=== PATIENT | female | born 1970 | race Caucasian/White ===

== ENCOUNTER 2020-02-03 01:00 | Outpatient (CLI) | payer OTHER, SELFPAY ==
[2020-02-03 16:32] LABS: SARS-CoV-2 RNA PCR Negative
== END 2020-02-03 01:01 | disposition home or self-care (01) ==
LOC: ANHCOVIDDT 01:00
PROVIDERS: PCP Family Medicine; Visit Provider Internal Medicine Gastroenterology
DX: Z01.812 Encounter for preprocedural laboratory examination (principal); Z20.828 Contact with and (suspected) exposure to other viral communicable diseases
CPT/HCPCS: 87635; C9803; U0003

== ENCOUNTER 2020-02-05 00:41 | Day surgery (SDC) | payer OTHER, SELFPAY ==
[2020-01-22 14:57] VITALS: BMI 42.1
[2020-02-05 09:55] VITALS: BP 132/81; PULSE 65; RESP 18; TEMP 36.5; O2SAT 98; BMI 41.8
[2020-02-05] MEDS: LACTATED RINGERS 1,000 ML 150 ML IV CONT (10:15)
--- NOTE | 2020-02-05 10:19 | WPDANESEPPF ---
Anes - Initial Pre Proc Eval Procedure: Operation Date: 02/05/20 10:30 Proposed Procedures p Screening Colonoscopy - Zachery Dumont MD Date/Time: 02/05/20 10:19 Surgeon: Zachery Dumont MD Pre Op Diagnosis: Neoplasm Screening Patient Data Age: 49 Gender: F Height: 5 ft 4 in Weight: 110.7 kg Last Vital Signs Temp 36.5 C 02/05/20 09:55 Pulse 65 02/05/20 09:55 Resp 65 H 02/05/20 09:55 BP 132/81 02/05/20 09:55 Pulse Ox 98 02/05/20 09:55 Allergies Allergy/AdvReac Type Severity Reaction Status Date / Time clotrimazole Allergy Unknown Unknown Verified 02/05/20 09:54 doxycycline Allergy Unknown Hives Verified 02/05/20 09:54 Home Medications Medication Instructions Recorded Confirmed Type aspirin 81 mg tablet,delayed 81 mg PO DAILY 06/04/19 01/22/20 History release cetirizine 10 mg tablet 10 mg PO DAILY 06/04/19 01/22/20 History cholecalciferol (vitamin D3) 125 125 mcg PO DAILY 06/04/19 01/22/20 History mcg (5,000 unit) capsule coenzyme Q10 200 mg capsule 200 mg PO DAILY 06/04/19 01/22/20 History levothyroxine 100 mcg tablet 100 mcg PO DAILY 06/04/19 01/22/20 History triamterene 37.5 1 cap PO DAILY 06/04/19 01/22/20 History mg-hydrochlorothiazide 25 mg capsule peg 3350-electrolytes 236 240 ml PO Q10M #4000 ml 01/21/20 02/05/20 Rx gram-22.74 gram-6.74 gram-5.86 gram solution Bifidobacterium infantis [Align] 4 mg PO DAILY 01/22/20 01/22/20 History duloxetine 20 mg capsule,delayed 20 mg PO BID #60 cap 01/29/20 02/05/20 Rx release Patient hx anesthesia problems: none Family hx anesthesia problems: none PMFSH Past Medical History Medical History Chronic fatigue, unspecified MANCIA (dyspnea on exertion) Essential hypertension Family history of diabetes mellitus Obstructive sleep apnea Surgical History Surgical History History of cholecystectomy History of hysterectomy Family History Family History Mother Family history of thyroid disease Grandparent Family history of thyroid disease Family history of cardiovascular disease Family history of lung cancer Father Diabetes mellitus Family history of cardiovascular disease Family history of congestive heart failure Social History Social History Smoking status: Never smoker Smoking end date: 05/29/96 Alcohol intake: current Anes - Eval Final PreProcedure Day of Procedure 02/05/20 10:19 Patient weight: morbidly obese Heart: regular rate and rhythm Lungs: clear to auscultation Airway: Mallampati scale class II Neurological: alert and oriented Last oral intake: >/= 8 hours ASA classification: III Emergent: no Anesthetic plan: proceed Anesthesia type and monitoring: general GIVS and standard monitoring Informed Consent: The patient's anesthetic plan and its attendant risks and benefits were discussed with the patient/family/POA. Questions were solicited and answers provided to the satisfaction of the patient/family/POA.
--- NOTE | 2020-02-05 10:44 | PM.HPGS ---
History of Present Illness History of Present Illness Consent: Risks, benefits, and alternatives have been discussed and questions answered. Patient agrees to proceed with procedure. Chief complaint: Neoplasm Screening Narrative: Imani Ortiz is a 49 year old female here for first screening colonoscopy Review of Systems Constitutional: Constitutional: Denies headache(s) and Denies weakness Eyes: Eyes: Denies blurry vision ENT: Reports Normal hearing present, Denies headache(s) and Denies neck pain Cardiovascular: Cardiovascular: Denies chest pain and Denies dyspnea Respiratory: Respiratory: Denies dyspnea Gastrointestinal: Gastrointestinal: Reports no additional gastrointestinal complaints Genitourinary: Genitourinary: Denies dysuria Musculoskeletal: Musculoskeletal: Denies neck pain Integumentary/Breasts: Skin/Breast: Denies dry skin Neurologic: Reports Normal hearing present, Denies headache(s) and Denies weakness Psychiatric: Psychiatric: Denies anxiety Endocrine: Endocrine: Denies change in body appearance Hematologic/Lymphatic: Hematologic/Lymphatic: Denies easy bleeding Allergic/Immunologic: Allergic/Immunologic: Denies urticaria PMFSH Past Medical History Medical History Chronic fatigue, unspecified MANCIA (dyspnea on exertion) Essential hypertension Family history of diabetes mellitus Obstructive sleep apnea Surgical History Surgical History History of cholecystectomy History of hysterectomy Family History Family History Mother Family history of thyroid disease Grandparent Family history of thyroid disease Family history of cardiovascular disease Family history of lung cancer Father Diabetes mellitus Family history of cardiovascular disease Family history of congestive heart failure Social History Social History Smoking status: Never smoker Smoking end date: 05/29/96 Alcohol intake: current Meds Home Medications and Allergies Home Medications Medication Instructions Recorded Confirmed Type aspirin 81 mg tablet,delayed 81 mg PO DAILY 06/04/19 01/22/20 History release cetirizine 10 mg tablet 10 mg PO DAILY 06/04/19 01/22/20 History cholecalciferol (vitamin D3) 125 125 mcg PO DAILY 06/04/19 01/22/20 History mcg (5,000 unit) capsule coenzyme Q10 200 mg capsule 200 mg PO DAILY 06/04/19 01/22/20 History levothyroxine 100 mcg tablet 100 mcg PO DAILY 06/04/19 01/22/20 History triamterene 37.5 1 cap PO DAILY 06/04/19 01/22/20 History mg-hydrochlorothiazide 25 mg capsule peg 3350-electrolytes 236 240 ml PO Q10M #4000 ml 01/21/20 02/05/20 Rx gram-22.74 gram-6.74 gram-5.86 gram solution Bifidobacterium infantis [Align] 4 mg PO DAILY 01/22/20 01/22/20 History duloxetine 20 mg capsule,delayed 20 mg PO BID #60 cap 01/29/20 02/05/20 Rx release Allergies Allergy/AdvReac Type Severity Reaction Status Date / Time clotrimazole Allergy Unknown Unknown Verified 02/05/20 09:54 doxycycline Allergy Unknown Hives Verified 02/05/20 09:54 Vital Signs Vital Signs - 24 hr 02/05/20 09:55 Temperature 97.7 F Pulse Rate 65 Respiratory Rate 65 H Blood Pressure 132/81 Pulse Oximetry 98 Exam Const: General: comfortable and no acute distress HENMT: General nose exam: Normal nares present Eyes: General: appearance normal, both eyes and all related structures Neck: Neck: no JVD Resp: Auscultation: clear to auscultation bilaterally Cardio: Rate: regular rate Rhythm: regular rhythm GI: Inspection: non-distended GI Palp: Yes Soft to palpation Skin: General skin exam: normal color Neuro: General: gait normal Speech: normal speech Extrem: General: normal to inspection Psych: Mental Status: mental status grossly
[2020-02-05 11:07] VITALS: BP 136/71; PULSE 64; RESP 21; O2SAT 100
[2020-02-05 11:17] VITALS: BP 120/83; PULSE 66; RESP 18; O2SAT 100
[2020-02-05 11:27] VITALS: BP 130/98; PULSE 61; RESP 21; O2SAT 100
== END 2020-02-05 11:38 | disposition home or self-care (01) ==
PROVIDERS: PCP Family Medicine; Visit Provider Internal Medicine Gastroenterology
PROC: 0DJD8ZZ Inspection of Lower Intestinal Tract, Via Natural or Artificial Opening Endoscopic (ICD-10-PCS; CPT 45378; principal; 2020-02-05 10:30)
DX: Z12.11 Encounter for screening for malignant neoplasm of colon (principal); K57.30 Diverticulosis of large intestine without perforation or abscess without bleeding; K64.8 Other hemorrhoids; I10 Essential (primary) hypertension; G47.33 Obstructive sleep apnea (adult) (pediatric); R53.82 Chronic fatigue, unspecified; Z79.82 Long term (current) use of aspirin
CPT/HCPCS: 45378; 87635; C9803; J2704; J7120; U0003

== ENCOUNTER 2020-05-13 06:54 | Outpatient (NON) | payer OTHER, SELFPAY ==
[2020-05-13 12:34] LABS: Influenza Control Positive
[2020-05-13 18:05] LABS: SARS-CoV-2 RNA PCR Negative
== END 2020-05-13 06:55 ==
LOC: ANHCOVIDDT 07:11
PROVIDERS: PCP Family Medicine; Visit Provider Family Medicine
DX: Z20.828 Contact with and (suspected) exposure to other viral communicable diseases (principal); J02.9 Acute pharyngitis, unspecified; R10.9 Unspecified abdominal pain
CPT/HCPCS: 87635; 87804; C9803; U0003

== ENCOUNTER 2020-06-02 08:06 | Outpatient (CLI) | payer OTHER, SELFPAY ==
--- NOTE | ~2020-06-02 | MM_ITS ---
EXAMINATION: MM screening [facility] BI w julio cesar HISTORY: Screening mammogram TECHNIQUE: Craniocaudal and mediolateral oblique 3-D tomosynthesis images were obtained and synthetic 2-D images were generated. CAD analysis was submitted and interpreted. COMPARISON: 05/09/2019, 04/25/2018, 06/14/2016 BREAST PARENCHYMAL COMPOSITION: There are scattered areas of fibroglandular density. FINDINGS: There is no evidence of suspicious mass, calcification, or architectural distortion to sugg est malignancy in either breast. There has been no suspicious interval change. IMPRESSION: 1. No mammographic evidence of malignancy. 2. Recommend routine screening mammography in one year. BI-RADS Category 1: Negative Reviewed, dictated and finalized at location A. [employer]
== END 2020-06-02 08:07 | disposition home or self-care (01) ==
PROVIDERS: PCP Family Medicine; Visit Provider Obstetrics & Gynecology
DX: Z12.31 Encounter for screening mammogram for malignant neoplasm of breast (principal)
CPT/HCPCS: 77063; 77067

== ENCOUNTER → 2021-02-10 08:11 | Outpatient (CLI) | payer OTHER, SELFPAY ==
--- NOTE | ~2021-02-10 | XR_ITS ---
XR lumbar spine 2-3V DATE: 02/10/2021 08:53 INDICATION: Low back pain TECHNIQUE: AP, lateral, coned lateral lumbosacral views COMPARISON: None FINDINGS: There is mild dextro scoliosis of the thoracolumbar spine. There is osteopenia. There is mild to moderate degenerative disc disease of the lower thoracic and lumbar spine. There is associated minimal retrolisthesis at L4-5. No fracture or bone destruction is evident. Included lower thoracic and lumbar pedicles are intact. The sacroiliac joints are normal. Status post cholecystectomy. IMPRESSION: [id number] degenerative disc disease Reviewed, dictated and finalized at location A. IMPRESSION: [id number] degenerative disc disease
== END ==
PROVIDERS: PCP Family Medicine; Visit Provider Family Medicine
DX: M51.36 Other intervertebral disc degeneration, lumbar region (principal)
CPT/HCPCS: 72100

== ENCOUNTER 2021-09-22 07:47 | Outpatient (CLI) | payer OTHER, SELFPAY ==
--- NOTE | ~2021-09-22 | MM_ITS ---
EXAMINATION: MM screening [facility] w julio cesar HISTORY: Screening TECHNIQUE: Craniocaudal and mediolateral oblique 3-D tomosynthesis images were obtained and synthetic 2-D images were generated. CAD analysis was submitted and interpreted. COMPARISON: Comparison to multiple prior studies sequentially, with oldest reviewed study dated 02/19. BREAST PARENCHYMAL COMPOSITION: There are scattered areas of fibroglandular density. FINDINGS: Stable bilateral breast asymmetries. There is no evidence of suspicious mass, calcification , or architectural distortion to suggest malignancy in either breast. There has been no suspicious in terval change. IMPRESSION: 1. No mammographic evidence of malignancy. 2. Recommend routine screening mammography in one year. BI-RADS Category 1: Negative Reviewed, dictated and finalized at location A.
== END 2021-09-22 07:48 | disposition home or self-care (01) ==
LOC: ANHIMG 07:48
PROVIDERS: PCP Family Medicine; Visit Provider Family Medicine
DX: Z12.31 Encounter for screening mammogram for malignant neoplasm of breast (principal)
CPT/HCPCS: 77063; 77067

== ENCOUNTER 2021-12-26 05:54 | Emergency (ER) | payer OTHER, SELFPAY ==
--- NOTE | ~2021-12-26 | CT_ITS ---
EXAMINATION: CT abdomen pelvis wo con DATE: 12/26/2021 07:39 INDICATION: Lower abdominal pain TECHNIQUE: Computed tomography (CT) of the abdomen and pelvis was performed with 100 mL Omnipaque-300 intravenous contrast. Automated exposure control and iterative reconstruction technique were employe d. The dose-length product was 1407.87 mGy-cm. COMPARISON: None FINDINGS: Mild discoid atelectasis in the left lower lobe. Calcified left lower lobe nodule along with calcifie d left hilar lymph nodes and a few splenic calcific lesions consistent with old granulomatous disease . Heart size is normal. No pericardial or pleural effusion. Diffuse hepatic steatosis. Cholecystectom y clips the gallbladder fossa. Pancreas, left kidney and bilateral adrenal glands are normal. There i s horizontal orientation of the right kidney which is otherwise normal. No urolithiasis or hydronephrosis. There is mild scattered diverticulosis with descending and sigmoid colon predominance but without adjacent inflammatory change to suggest diverticulitis. Small bowel a nd appendix are normal. Diffuse mild wall thickening in the bladder to at least in part to partially decompressed state. There appears be a couple tiny foci of gas within the bladder. The uterus is not identified and has likely been surgically resected. No free intraperitoneal gas or fluid. No patholog ically enlarged abdominal or pelvic lymphadenopathy. Mild to moderate lumbar and lower thoracic spond ylosis. IMPRESSION: 1. Mild wall thickening of the bladder to at least in part to decompressed state but with a couple sm all foci of internal gas which raises the possibility of cystitis or recent Nunez catheterization or other instrumentation. Correlate with urinalysis and clinical history. 2. Mild diverticulosis. 3. Diffuse hepatic steatosis. Reviewed, dictated and finalized at location A. IMPRESSION: 1. Mild wall thickening of the bladder to at least in part to decompressed stat e but with a couple small foci of internal gas which raises the possibility of cystitis or recent Nunez catheterization or other instrumentation. Correlate wi urinalysis and clinical history. 2. Mild diverticulosis. 3. Diffuse hepatic steatosis.
[2021-12-26 06:06] VITALS: BP 139/66; PULSE 98; RESP 14; TEMP 36.3; O2SAT 98
[2021-12-26 06:26] LABS: Add Urine Microscopic? YES; Blood Urine 3+ (Negative); Color Urine Red (Yellow); Glucose Urine UA Negative (Negative); Nitrate Urine Negative (Negative); pH Urine 8.5 (5.0-9.0)
[2021-12-26 06:39] LABS: Appearance Urine Cloudy (Clear)
[2021-12-26 06:41] LABS: Bilirubin Urine 3+ (Negative)
[2021-12-26 06:42] LABS: Ketones Urine 2+ mg/dL (Negative); Leukocyte Esterase Ur 3+ LEU/UL (Negative); Protein Urine 3+ mg/dL (Negative)
[2021-12-26 06:46] LABS: RBC Urine >75 /hpf (0-2); WBC Clumps Urine Present /HPF; WBC Urine >75 /hpf
--- NOTE | 2021-12-26 07:29 | ED.FEMALEGU ---
HPI - Female Genitourinary General Chief complaint: Urogenital-Female Stated complaint: hematuria, suprapubic pain Time Seen by Provider: 12/26/21 07:02 Source: RN notes reviewed History of Present Illness HPI Narrative: Patient presents emergency room from home for hematuria. Patient states symptoms began approximately 4:30 AM. States that at that time she developed dysuria and hematuria as well as lower abdominal pain. The pain is described as sharp and stabbing in nature. States the pain does not radiate. States that she feels that she needs to use the restroom frequently as well she denies any fevers or chills chest pain shortness of breath nausea vomiting or any other symptoms Related Data Home Medications Medication Instructions Recorded Confirmed aspirin 81 mg tablet,delayed 81 mg PO DAILY 06/04/19 12/07/21 release (Adult Low Dose Aspirin) cetirizine 10 mg tablet (Zyrtec) 10 mg PO DAILY 06/04/19 12/07/21 cholecalciferol (vitamin D3) 125 125 mcg PO DAILY 06/04/19 12/07/21 mcg (5,000 unit) capsule coenzyme Q10 200 mg capsule (Co 200 mg PO DAILY 06/04/19 12/07/21 Q-10) levothyroxine 100 mcg tablet 100 mcg PO DAILY 06/04/19 12/07/21 (Synthroid) Bifidobacterium infantis 4 mg 4 mg PO DAILY 01/22/20 12/07/21 capsule (Align) Allergies Allergy/AdvReac Type Severity Reaction Status Date / Time levofloxacin Allergy Severe Joint Pain Verified 12/07/21 11:33 clotrimazole Allergy Unknown Unknown Verified 12/07/21 11:33 doxycycline Allergy Unknown Hives Verified 12/07/21 11:33 Review of Systems Review of Systems: Gen.: Denies fevers or chills ENT: Denies congestion Respiratory: Denies shortness of breath or cough CV: Denies chest pain or palpitations GI: Reports lower abdominal pain denies nausea vomiting or diarrhea see HPI Musculoskeletal: Denies back pain or muscle pain Neuro: Denies numbness, tingling, weakness or focal weakness Skin: Denies rash Except as documented, all other systems reviewed and negative PMFSH Past Medical History Medical History Chronic fatigue, unspecified Colon cancer screening MANCAI (dyspnea on exertion) Essential hypertension Family history of diabetes mellitus Obstructive sleep apnea Surgical History Surgical History History of cholecystectomy History of hysterectomy Family History Family History Mother Family history of thyroid disease Grandparent Family history of thyroid disease Family history of cardiovascular disease Family history of lung cancer Father Diabetes mellitus Family history of cardiovascular disease Family history of congestive heart failure Social History Social History Smoking status: Never smoker Second hand tobacco smoke exposure: No Smoking end date: 05/29/96 Alcohol intake: current Drinks per week: 10 Alcohol use details: 01/05 beers a week Substance use: never Substance use type: does not use Gender identity (if verbalized by the patient): Female Spiritual care concerns: No Agree to blood products: Yes Exam Narrative: APPEARANCE: No acute distress, nontoxic, resting in bed HEENT: Normocephalic, atraumatic, OMM RESPIRATORY: No respiratory distress, clear to auscultation bilaterally with no rhonchi wheezing or rales CARDIOVASCULAR: RRR s murmur ABDOMINAL: Soft nondistended tender palpation in right lower quadrant left lower quadrant tenderness right upper quadrant left lower quadrant rebound or guarding MUSCULOSKELETAl: Moves all extremities. No clubbing, cyanosis or edema. NEURO: Awake and alert. Following commands, speech normal, no focal deficits SKIN:: Warm, dry. Normal Color PSYCHIATRIC: Normal affect/mood Course Course Emergency Course: Discussed with patient results of w
[2021-12-26] MEDS: PHENAZOPYRIDINE HCL 100 MG TABLET 200 MG PO (07:59)
[2021-12-26] MEDS: IBUPROFEN 600 MG TABLET PO (08:29)
[2021-12-26 08:53] VITALS: BP 142/99; PULSE 94; RESP 16; O2SAT 95
== END 2021-12-26 08:55 | disposition home or self-care (01) ==
PROVIDERS: Emergency Medicine; Emergency Provider Emergency Medicine; PCP Family Medicine
DX: N39.0 Urinary tract infection, site not specified (principal); R53.82 Chronic fatigue, unspecified; I10 Essential (primary) hypertension; G47.33 Obstructive sleep apnea (adult) (pediatric); Z90.710 Acquired absence of both cervix and uterus; Z79.82 Long term (current) use of aspirin
CPT/HCPCS: 74176; 81001; 87077; 87086; 87186; 99284; A9270

== ENCOUNTER → 2022-12-07 10:01 | Outpatient (CLI) | payer OTHER, SELFPAY ==
--- NOTE | ~2022-12-07 | US_ITS ---
EXAMINATION: US venous doppler [facility] DATE: 12/07/2022 10:17 INDICATION: Left lower limb pain TECHNIQUE: Grayscale ultrasound images without and with compression and Doppler ultrasound images of the left lower extremity veins were obtained. COMPARISON: None. FINDINGS: The visualized portions of left common femoral vein, profunda (deep) femoral vein, femoral vein, popl iteal vein, peroneal veins, posterior tibial veins, gastrocnemius vein and greater saphenous vein out flow are patent. IMPRESSION: 1. No deep venous thrombosis in the left lower limb. Reviewed, dictated and finalized at location A.
== END ==
PROVIDERS: PCP Family Medicine; Visit Provider Nurse Practitioner Family
DX: M79.662 Pain in left lower leg (principal)
CPT/HCPCS: 93971

== ENCOUNTER 2023-02-01 08:29 | Outpatient (CLI) | payer OTHER, SELFPAY ==
--- NOTE | ~2023-02-01 | MM_ITS ---
EXAMINATION: MM screening [facility] w julio cesar HISTORY: Screening mammogram TECHNIQUE: Craniocaudal and mediolateral oblique 3-D tomosynthesis images were obtained and synthetic 2-D images were generated. CAD analysis was submitted and interpreted. COMPARISON: September 22, 2021, June 02, 2020, May 09, 2019 bilateral screening mammogram examinat ions BREAST PARENCHYMAL COMPOSITION: There are scattered areas of fibroglandular density. FINDINGS: There is a biopsy marker on the right; history of prior benign right breast biopsy. There i s no evidence of suspicious mass, calcification, or architectural distortion to suggest malignancy in either breast. There has been no suspicious interval change. IMPRESSION: 1. No mammographic evidence of malignancy. 2. Recommend routine screening mammography in one year. BI-RADS Category 1: Negative Reviewed, dictated and finalized at location A.
== END 2023-02-01 08:30 | disposition home or self-care (01) ==
LOC: ANHIMG 08:31
PROVIDERS: PCP Family Medicine; Visit Provider Family Medicine
DX: Z12.31 Encounter for screening mammogram for malignant neoplasm of breast (principal)
CPT/HCPCS: 77063; 77067

== ENCOUNTER → 2023-03-23 15:33 | Outpatient (CLI) | payer OTHER, SELFPAY ==
--- NOTE | ~2023-03-23 | XR_ITS ---
XR knee RT min 4V DATE: 03/23/2023 15:44 INDICATION: Lateral right knee pain for one week TECHNIQUE: [place] and standing AP, PA and lateral views COMPARISON: None FINDINGS: Patellar enthesopathy at quadriceps tendon insertion site. No fracture or dislocation or joint effusion. No periosteal reaction or bone destruction. Very slight periarticular spurring of the medial and lateral tibial plateau. Joint spaces appear well preserved. No radiopaque intra-articular loose body or chondrocalcinosis. IMPRESSION: Slight osteoarthritis Reviewed, dictated and finalized at location A. IMPRESSION: Slight osteoarthritis
== END ==
PROVIDERS: PCP Family Medicine; Visit Provider Family Medicine
DX: M17.11 Unilateral primary osteoarthritis, right knee (principal)
CPT/HCPCS: 73564

== ENCOUNTER 2023-07-07 09:33 | Outpatient (CLI) | payer OTHER, SELFPAY ==
--- NOTE | ~2023-07-07 | CT_ITS ---
EXAMINATION: CT abdomen pelvis w con INDICATION: Left lower quadrant and left flank pain TECHNIQUE: Computed tomographic images of the abdomen and pelvis were obtained after the administrati on of 100 cc of Omnipaque 350 intravenous contrast. The dose-length product (DLP) was 1379.32 mGy-cm. Automated exposure control and iterative reconstruction technique were employed. COMPARISON: 12/26/2021 FINDINGS: The lung bases are clear. The heart size is normal. The liver is diffusely low in attenuati on when compared with the spleen, consistent with hepatic steatosis. Punctate calcifications in an ot herwise normal spleen likely represent healed granulomatous disease. Changes of cholecystectomy are n oted. The pancreas and adrenal glands are normal. The kidneys are unremarkable. No pathologically enl arged abdominal or pelvic lymph nodes are identified. No free intraperitoneal gas or evidence of peyman l obstruction. Colonic diverticulosis is present without evidence of diverticulitis. The appendix is normal. There is moderate lumbar spondylosis. IMPRESSION: 1. No CT correlate for the patient's symptoms. 2. Diverticulosis without evidence of diverticulitis. 3. Diffuse hepatic steatosis. Reviewed, dictated and finalized at location B. [employer]
== END 2023-07-07 09:34 | disposition home or self-care (01) ==
PROVIDERS: PCP Family Medicine; Visit Provider Nurse Practitioner
DX: R10.32 Left lower quadrant pain (principal); R19.4 Change in bowel habit; K57.30 Diverticulosis of large intestine without perforation or abscess without bleeding; K76.0 Fatty (change of) liver, not elsewhere classified
CPT/HCPCS: 74177; Q9967

== ENCOUNTER 2023-07-26 01:53 | Day surgery (SDC) | payer OTHER, SELFPAY ==
[2023-07-11 15:22] VITALS: BMI 44.6
--- NOTE | 2023-07-24 11:52 | PC.NURSE ---
Patient called regarding upcoming procedure. Reviewed preop instructions, appointment times, and procedure prep.
[2023-07-26 13:12] VITALS: BP 135/95; PULSE 71; RESP 18; TEMP 36; O2SAT 98; BMI 43.3
--- NOTE | 2023-07-26 13:30 | WPDANESEPPF ---
Anes - Initial Pre Proc Eval Procedure: Operation Date: 07/26/23 14:30 Proposed Procedures p Esophagogastroduodenoscopy & Colonoscopy - Zachery Dumont MD Date/Time: 07/26/23 13:30 Surgeon: Zachery Dumont MD Pre Op Diagnosis: GERD,Eructation,Nausea,change in bowel habits Patient Data Age: 52 Gender: F Height: 1.63 m Weight: 114.5 kg Last Vital Signs Temp 36.0 C L 07/26/23 13:12 Pulse 71 07/26/23 13:12 Resp 18 07/26/23 13:12 BP 135/95 H 07/26/23 13:12 Pulse Ox 98 07/26/23 13:12 O2 Del Method Room Air 07/26/23 13:12 Allergies Allergy/AdvReac Type Severity Reaction Status Date / Time levofloxacin Allergy Severe Joint Pain Verified 07/26/23 13:20 clotrimazole Allergy Unknown Unknown Verified 07/26/23 13:20 doxycycline Allergy Unknown Hives Verified 07/26/23 13:20 Home Medications Medication Instructions Recorded Confirmed Type aspirin 81 mg tablet,delayed 81 mg PO DAILY 06/04/19 07/26/23 History release (Adult Low Dose Aspirin) cetirizine 10 mg tablet (Zyrtec) 10 mg PO DAILY 06/04/19 07/26/23 History cholecalciferol (vitamin D3) 125 125 mcg PO DAILY 06/04/19 07/26/23 History mcg (5,000 unit) capsule coenzyme Q10 200 mg capsule (Co 200 mg PO DAILY 06/04/19 07/26/23 History Q-10) albuterol sulfate 90 mcg/actuation 2 puff inhalation Q4H PRN 12/09/21 07/26/23 Rx aerosol inhaler (Ventolin HFA) shortness of breath or wheezing #6.7 grams duloxetine 60 mg capsule,delayed 60 mg PO DAILY #90 caps 03/14/23 07/26/23 Rx release lorazepam 0.5 mg tablet (Ativan) 0.5 mg PO BID PRN anxiety #14 tabs 04/04/23 07/26/23 Rx levothyroxine 100 mcg tablet 100 mcg PO DAILY #90 tabs 04/05/23 07/26/23 Rx (Synthroid) triamterene 37.5 See Rx Instructions .Route 05/09/23 07/26/23 Rx mg-hydrochlorothiazide 25 mg tablet .COMPLEX #90 tabs omeprazole 20 mg capsule,delayed 20 mg PO DAILY 07/11/23 07/26/23 History release Patient hx anesthesia problems: none Family hx anesthesia problems: none Results Review: All pre-operative results and documents have been reviewed as part of the pre-operative evaluation. PMFSH Past Medical History Medical History Abdominal pain Abnormal urinalysis B12 deficiency Belching symptom Change in bowel habit Chronic fatigue, unspecified Chronic nausea Colon cancer screening Diverticulosis MANCIA (dyspnea on exertion) Dysuria Epigastric burning sensation Essential hypertension Family history of diabetes mellitus Fatigue Fibromyalgia GERD (gastroesophageal reflux disease) Hyperglycemia Hyperlipemia Hypothyroid Insomnia LLQ abdominal pain Lumbar back pain Obesity Obstructive sleep apnea Pain in left lower leg Palpitations Panic attack Perimenopausal Prediabetes Right knee DJD Vitamin D deficiency Surgical History Surgical History H/O thumb surgery History of cholecystectomy History of hysterectomy (08/11/11) Robotic-assisted total hysterectomy Family History Family History Mother Family history of thyroid disease Grandparent Family history of thyroid disease Family history of cardiovascular disease Family history of lung cancer Father Diabetes mellitus Family history of cardiovascular disease Family history of congestive heart failure Unknown Asthma Hypertension Heart disease Arthritis Hyperlipidemia Social History Social History Smoking status: Never smoker Second hand tobacco smoke exposure: No Smoking end date: 05/29/96 Alcohol intake: former Drinks per week: 6 Substance use: never Substance use type: does not use Do You Feel Safe in your Home?: Yes Lack of Transportation: No Lack of Food: Never True Current Housing: I Have Housing Concerned About Fu
[2023-07-26] MEDS: LACTATED RINGERS 1,000 ML 150 ML IV CONT (13:43)
--- NOTE | 2023-07-26 14:13 | WPDHPUPDATE1 ---
History and Physical Update Update Date/Time: 07/26/23 14:13 History and Physical has been reviewed, including an updated exam of the patient. There are NO changes in the patient's condition. Risks, benefits, and alternatives have been discussed and questions answered. Patient agrees to proceed with procedure.
--- NOTE | 2023-07-26 14:31 | SUR.OPER ---
EGD end: 1428 COLONOSCOPY START: 1433
[2023-07-26 14:46] VITALS: BP 128/74; PULSE 77; RESP 23; O2SAT 99
[2023-07-26 14:56] VITALS: BP 127/76; PULSE 76; RESP 19; O2SAT 100
[2023-07-26 15:06] VITALS: BP 141/71; PULSE 75; RESP 24; O2SAT 99
== END 2023-07-26 15:25 | disposition home or self-care (01) ==
PROVIDERS: PCP Family Medicine; Visit Provider Internal Medicine Gastroenterology
PROC: 0DJ08ZZ Inspection of Upper Intestinal Tract, Via Natural or Artificial Opening Endoscopic (ICD-10-PCS; CPT 43235; principal; 2023-07-26 14:30)
DX: K52.9 Noninfective gastroenteritis and colitis, unspecified (principal); K57.30 Diverticulosis of large intestine without perforation or abscess without bleeding; K64.8 Other hemorrhoids; I10 Essential (primary) hypertension; E03.9 Hypothyroidism, unspecified; K21.9 Gastro-esophageal reflux disease without esophagitis; G47.33 Obstructive sleep apnea (adult) (pediatric); E55.9 Vitamin D deficiency, unspecified; R73.03 Prediabetes; Z87.891 Personal history of nicotine dependence; E66.01 Morbid (severe) obesity due to excess calories; Z68.41 Body mass index [BMI] 40.0-44.9, adult; Z79.82 Long term (current) use of aspirin; Z79.51 Long term (current) use of inhaled steroids
CPT/HCPCS: 45380; 43239; 88305; J2704; J7120

== ENCOUNTER 2023-10-02 10:43 | Outpatient (CLI) | payer OTHER, SELFPAY | END 2023-10-02 10:44 | LOC: GOSHIMG 10:45 | PROVIDERS: PCP Family Medicine; Visit Provider Nurse Practitioner | DX: M25.562 Pain in left knee (principal) | CPT/HCPCS: 73562 ==

== ENCOUNTER 2023-10-04 09:23 | Outpatient (CLI) | payer OTHER, SELFPAY ==
--- NOTE | ~2023-10-04 | MR_ITS ---
EXAMINATION: MR knee LT wo con DATE: 10/04/2023 09:59 INDICATION: Left knee pain. TECHNIQUE: Magnetic resonance imaging (MRI) of the left knee was performed without intravenous contra st. Sequences included axial PD-weighted FS FSE, coronal PD-weighted FSE and PD-weighted FS FSE, sagi ttal PD-weighted FSE, and sagittal T2-weighted FS FSE. COMPARISON: Left knee radiographs 10/02/2023 FINDINGS: Medial compartment: There is a radial tear of posterior horn of medial meniscus. There is shallow partial-thickness carti diamond loss of tibial condyle. There is mild subchondral edema-like marrow signal intensity involving t he anterior articular surface. There is partial-thickness cartilage loss of femoral condyle, deep at the central articular surface where there is mild subchondral edema-like marrow signal intensity. Ost eophytes are noted. Lateral compartment: Lateral meniscus is normal. There is cartilage surface irregularity of femoral condyle and tibial con dyle. There are tiny osteophytes. Patellofemoral compartment: There is full-thickness cartilage loss of patellar medial facet and median ridge with mild subchondra l edema-like marrow signal intensity. There is partial-thickness cartilage loss of the patellar later al facet. There is full-thickness cartilage loss of central trochlea. Ligaments and tendons: The anterior and posterior cruciate ligaments are normal. There are changes of prior sprains of media l collateral ligament and fibular collateral ligament characterized by thickening and increased signa l intensity proximally. There is moderate patellar tendinopathy. Fluid: There is a moderate-sized knee joint effusion. There is a small Nazario's cyst. There is mild prepatell ar and superficial infrapatellar bursitis. IMPRESSION: 1. Severe chondrosis of patellofemoral compartment, moderate chondrosis of the medial compartment, an d mild chondrosis of lateral compartment. 2. Tear of medial meniscus. 3. Moderate-sized knee joint effusion. 4. Small Nazario's cyst. Reviewed, dictated and finalized at location A. IMPRESSION: 1. Severe chondrosis of patellofemoral compartment, moderate chondrosis of the medial compartment, and mild chondrosis of lateral compartment. 2. Tear of medial meniscus. 3. Moderate-sized knee joint effusion. 4. Small Nazario's cyst.
== END 2023-10-04 09:24 ==
PROVIDERS: PCP Orthopaedic Surgery; Visit Provider Nurse Practitioner
DX: M25.462 Effusion, left knee (principal); M71.22 Synovial cyst of popliteal space [Baker], left knee; S83.242D Other tear of medial meniscus, current injury, left knee, subsequent encounter; X58.XXXD Exposure to other specified factors, subsequent encounter
CPT/HCPCS: 73721

== ENCOUNTER 2023-11-03 09:20 | Outpatient (CLI) | payer OTHER, SELFPAY ==
--- NOTE | 2023-11-03 09:32 | ECG_ITS ---
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 Measurements Intervals [place] Rate: 59 P: 21 AK: 186 QRS: 58 QRSD: 87 T: 30 QT: 389 QTc: 388 Interpretive Statements SINUS BRADYCARDIA LOW QRS VOLTAGE POOR R-WAVE PROGRESSION ABNORMAL ECG No previous ECG available for comparison Electronically Signed On 11-04-2023 07:43:10 CDT by Russel Santana M.D.
[2023-11-03 11:05] LABS: Anion Gap 5 mmol/L (4-12); Blood Urea Nitrogen 17 mg/dL (7-17); Calcium 9.7 mg/dL (8.4-10.2); Carbon Dioxide 30 mmol/L (22-30); Chloride 103 mmol/L (98-107); Estimated Glomerular Filt Rate > 60; Glucose 96 mg/dL (65-110); Potassium 3.8 mmol/L (3.4-5.0); Sodium 138 mmol/L (137-145)
== END 2023-11-03 09:21 | disposition home or self-care (01) ==
LOC: ANHSURGERY 09:23
PROVIDERS: Anesthesiology; PCP Family Medicine; Visit Provider Orthopaedic Surgery
DX: I10 Essential (primary) hypertension (principal); Z79.899 Other long term (current) drug therapy; Z01.818 Encounter for other preprocedural examination
CPT/HCPCS: 36415; 80048; 93005

== ENCOUNTER 2023-11-09 04:13 | Day surgery (SDC) | payer OTHER, SELFPAY ==
[2023-11-01 13:03] VITALS: BMI 42.1
--- NOTE | 2023-11-01 13:10 | PC.NURSE ---
Report to the Outpatient Waiting Room, entrance under the green pavilion located off [facility], at time _0830_ on date _[id number]_. Planned Procedure Time: _1030_. Time changes happen often and if your time is changed the preop area will call you the afternoon before. - You and your visitor will be asked to self-screen and do not enter if you have any COVID symptoms. - A mask is optional within the hospital at this time. Patients may have clear liquids (water, carbonated beverages, clear teas, apple juice) until 3 hours prior to surgery with a maximum of 20 ounces. - No food from midnight until time of surgery Take the following medications with a SIP of water the morning of surgery: __Duloxetine and Levothyroxine. Lorazepam if needed. DO NOT STOP ANY OF YOUR OTHER PRESCRIPTION MEDICATIONS PRIOR TO SURGERY ?EXCEPT THE FOLLOWING Medications to discontinue per physician ___Vitamin D3, QqN54 Date to take last tlib__[id number] Please no make-up, nail ghanaian, hairspray, perfume, deodorant, or body powder the day of surgery. No jewelry (including any body piercings) or valuables the day of surgery, leave them at home. Please take a shower or bath the night before, or the morning of, surgery with an antibacterial soap. Wear comfortable, loose fitting clothing. - Jewelry must be removed prior to entering the operating room. Rings and piercings that are not removed may be cut off. - The hospital will not accept responsibility for valuables. - Please leave all valuables, including medications, at home the day of surgery. If you are going home after surgery, a licensed hazmat tanker driver must drive you home. - NO public transportation without another adult if you receive anesthesia. - We recommend that an adult stay with you for 24 hours following discharge. - We also recommend that you do not drive, make important decision, drink alcoholic beverages, or take any drugs that were not prescribed by your health care provider for at least 24 hours after your discharge time. Follow any additional instructions given to you from your surgeon. If you or anyone in your household have experienced Covid symptoms in the past week, please notify your surgeon or the nurse liaison at the phone number below for possible testing. Telephone instructions given to _Ann__and asked if any additional questions and then verbalized understanding. Patient advised to call surgeon office or pre surgery nurse liaison [phone] if any additional questions.
[2023-11-09] VITALS (7 sets, daily range): BP systolic 137–166; BP diastolic 84–107; PULSE 75–90; RESP 14–22; TEMP 36.4–36.8; O2SAT 94–100
--- NOTE | 2023-11-09 07:17 | WPDHPUPDATE1 ---
History and Physical Update Update Date/Time: 11/09/23 07:17 History and Physical has been reviewed, including an updated exam of the patient. There are NO changes in the patient's condition. Risks, benefits, and alternatives have been discussed and questions answered. Patient agrees to proceed with procedure.
--- NOTE | 2023-11-09 09:20 | WPDANESEPPF ---
Anes - Initial Pre Proc Eval Procedure: Operation Date: 11/09/23 10:30 Proposed Procedures p Left Knee Arthroscopy, Debride Meniscus Synovectomy, Chrondroplasty, Proceed As Indicated - Pavan Mckay MD Date/Time: 11/09/23 09:20 Surgeon: Pavan Mckay MD Pre Op Diagnosis: Lt Knee Pain, Medial Meniscus tear Patient Data Age: 53 Gender: F Height: 1.63 m Weight: 111.4 kg Allergies Allergy/AdvReac Type Severity Reaction Status Date / Time levofloxacin Allergy Severe Joint Pain Verified 11/01/23 13:00 clotrimazole Allergy Unknown Unknown Verified 11/01/23 13:00 doxycycline Allergy Unknown Hives Verified 11/01/23 13:00 Home Medications Medication Instructions Recorded Confirmed Type aspirin 81 mg tablet,delayed 81 mg PO DAILY 06/04/19 11/01/23 History release (Adult Low Dose Aspirin) cetirizine 10 mg tablet (Zyrtec) 10 mg PO DAILY 06/04/19 11/01/23 History cholecalciferol (vitamin D3) 125 125 mcg PO DAILY 06/04/19 11/01/23 History mcg (5,000 unit) capsule coenzyme Q10 200 mg capsule (Co 200 mg PO DAILY 06/04/19 11/01/23 History Q-10) albuterol sulfate 90 mcg/actuation 2 puff inhalation Q4H PRN 12/09/21 11/01/23 Rx aerosol inhaler (Ventolin HFA) shortness of breath or wheezing #6.7 grams triamterene 37.5 See Rx Instructions .Route 05/09/23 11/01/23 Rx mg-hydrochlorothiazide 25 mg tablet .COMPLEX #90 tabs lorazepam 0.5 mg tablet (Ativan) 0.5 mg PO BID PRN anxiety #30 tabs 08/24/23 11/01/23 Rx levothyroxine 100 mcg tablet See Rx Instructions .Route 09/27/23 11/01/23 Rx .COMPLEX #90 tabs duloxetine 20 mg capsule,delayed 20 mg PO BID #180 caps 10/18/23 11/01/23 Rx release omeprazole 20 mg capsule,delayed 20 mg PO DAILY #90 caps 10/31/23 11/01/23 Rx release Patient hx anesthesia problems: none Family hx anesthesia problems: none Results Review: All pre-operative results and documents have been reviewed as part of the pre-operative evaluation. [facility] Past Medical History Medical History Abdominal pain Abnormal urinalysis Acute medial meniscus tear of left knee B12 deficiency Belching symptom Change in bowel habit Chondromalacia, left knee Chronic fatigue, unspecified Chronic nausea Colitis Colon cancer screening Diverticulosis MANCIA (dyspnea on exertion) Dysuria Epigastric burning sensation Essential hypertension Family history of diabetes mellitus Fatigue Fibromyalgia GERD (gastroesophageal reflux disease) Hyperglycemia Hyperlipemia Hypothyroid Insomnia LLQ abdominal pain Lumbar back pain Obesity Obstructive sleep apnea Pain in left lower leg Palpitations Panic attack Perimenopausal Prediabetes Right knee DJD Vitamin D deficiency Surgical History Surgical History H/O thumb surgery History of cholecystectomy History of hysterectomy (08/11/11) Robotic-assisted total hysterectomy Family History Family History Mother Family history of thyroid disease Grandparent Family history of thyroid disease Family history of cardiovascular disease Family history of lung cancer Father Diabetes mellitus Family history of cardiovascular disease Family history of congestive heart failure Unknown Asthma Hypertension Heart disease Arthritis Hyperlipidemia Social History Social History Smoking status: Never smoker Second hand tobacco smoke exposure: No Smoking end date: 05/29/96 Alcohol intake: current Drinks per week: 4 Substance use: never Substance use type: does not use Do You Feel Safe in your Home?: Yes Lack of Transportation: No Lack of Food: Never True Current Housing: I Have Housing Concerned About Future Housing: No Difficulty Paying Gas/Electric Bills: No Difficulty Paying fo
[2023-11-09] MEDS: LACTATED RINGERS 1,000 ML 30 ML IV CONT ×2 (09:45→12:15)
[2023-11-09] MEDS: KETOROLAC 15 MG/ML VIAL (*BKC) IV PUSH (09:45)
[2023-11-09] MEDS: ACETAMINOPHEN 500 MG TABLET 1000 MG PO (09:45)
[2023-11-09] MEDS: ceFAZolin 2 GM/D5W 50 ML 2 GM/50 ML BAG IVPB (11:13)
[2023-11-09] MEDS: BUPIVACAINE/EPINEPHRINE 0.5% 10 ML VIAL INFILTRATE (11:34)
[2023-11-09] MEDS: BUPivacaine HCL 0.25% PF 30 ML VIAL 10 ML INFILTRATE (11:35)
--- NOTE | 2023-11-09 12:24 | P.OP_ITS ---
Procedure Note - Detailed Date of Procedure 11/09/23 Pre-op Diagnosis Lt Knee Pain, Medial Meniscus tear Post-op Diagnosis Same Procedure Performed left knee arthroscopy, partial medial meniscectomy Surgeon Pavan Mckay MD Manufacturing Analyst surgical scrub Anesthesia General Indications 53-year-old woman with left knee injury medial-sided pain. MRI shows medial meniscus tear. Presents for operative treatment. Findings Left knee posterior horn medial meniscus tear, complex. Lateral meniscus and compartment intact. Grade 3 chondromalacia patellofemoral articulation. Grade 3 chondromalacia medial femoral condyle. ACL and PCL intact. Description of Procedure Informed consent given by patient. Operative extremity marked in preoperative holding area. Patient received intravenous antibiotics. Patient brought to operating room and underwent general anesthetic by anesthesia team. Positioned supine on operating room table. Left leg placed into a posterior thigh leg floyd. Foot of the table dropped to 90? and right leg padded out of the field. Time-out performed confirming patient, site of surgery and plan. Left knee prepped and draped in usual sterile surgical fashion using ChloraPrep skin solution. Standard arthroscopic portals made by using a 11 blade knife for the anterior lateral portal 1st. Capsule penetrated bluntly. Camera and inflow started. The below operative findings noted. Intra-articular visualization used to position the anterior medial portal using 22 gauge spinal needle. A 11 blade knife used for the skin and blunt penetration of the capsule. 4.7 millimeter arthroscopic shaver introduced and partial medial meniscectomy of the loose and torn portion performed. Edge of meniscus completed with arthroscopic Wand. Arthroscopic Wand used to perform chondroplasty of the patellofemoral articulation and the medial femoral condyle. Shaver reintroduced and a synovectomy performed of the anterior fat pad and extensive synovium as well as medial and lateral plica. Bleeding points coagulated with Wand. Knee inspected, no loose pieces noted. 1 liter of irrigant infused and suction out. Arthroscopic cannulas removed. Skin closed with 4 nylon interrupted suture. Local anesthetic with 0.25% Marcaine. Sterile dressing applied. Patient awoken from anesthesia, extubated and taken to recovery room in stable condition. All sponge needle and instrument counts correct at the end of the case. Estimated Blood Loss 10 Tourniquet Time Total Tourniquet Time: 0 Drains No Packing No Pathology None sent Complications None Condition Stable Disposition PACU [facility] Billing Surgery - Charge Forward: Surgery Billing ([id number])
[2023-11-09] MEDS: oxyCODONE HCL (*CRX) 5 MG TAB IR PO (13:25)
== END 2023-11-09 14:13 | disposition home or self-care (01) ==
PROVIDERS: PCP Family Medicine; Visit Provider Orthopaedic Surgery
PROC: (CPT 29870; principal; 2023-11-09 10:30)
DX: S83.232A Complex tear of medial meniscus, current injury, left knee, initial encounter (principal); M22.42 Chondromalacia patellae, left knee; T14.90XA Injury, unspecified, initial encounter; I10 Essential (primary) hypertension; E53.8 Deficiency of other specified B group vitamins; K21.9 Gastro-esophageal reflux disease without esophagitis; E78.5 Hyperlipidemia, unspecified; E03.9 Hypothyroidism, unspecified; E55.9 Vitamin D deficiency, unspecified; G47.33 Obstructive sleep apnea (adult) (pediatric); E66.9 Obesity, unspecified; Z68.41 Body mass index [BMI] 40.0-44.9, adult
CPT/HCPCS: 29881; 36415; 80048; 93005; A9270; J0690; J1100; J1885; J2250; J2405; J2704; J3010; J7120

== ENCOUNTER 2024-02-26 07:20 | Outpatient (CLI) | payer OTHER, SELFPAY ==
--- NOTE | ~2024-02-26 | MM_ITS ---
EXAMINATION: MM screening triston BI w julio cesar HISTORY: Screening TECHNIQUE: Craniocaudal and mediolateral oblique 3-D tomosynthesis images were obtained and synthetic 2-D images were generated. CAD analysis was submitted and interpreted. COMPARISON: Comparison to multiple prior studies sequentially, with oldest reviewed study dated 06/14. BREAST PARENCHYMAL COMPOSITION: Not dense: There are scattered areas of fibroglandular density. FINDINGS: There is no evidence of suspicious mass, calcification, or architectural distortion to sugg est malignancy in either breast. There has been no suspicious interval change. IMPRESSION: 1. No mammographic evidence of malignancy. 2. Recommend routine screening mammography in one year. BI-RADS Category 1: Negative Reviewed, dictated and finalized at location B.
== END 2024-02-26 07:21 | disposition home or self-care (01) ==
LOC: ANHIMG 07:24
PROVIDERS: PCP Family Medicine; Visit Provider Family Medicine
DX: Z12.31 Encounter for screening mammogram for malignant neoplasm of breast (principal)
CPT/HCPCS: 77063; 77067

== ENCOUNTER 2024-11-07 04:18 | Day surgery (SDC) | payer OTHER, SELFPAY ==
[2024-11-05 13:24] VITALS: BMI 42.9
--- OUTSIDE RECORDS SUMMARY | 2024-11-07 04:38 | XMS_ITS | Clinical Summary ---
Author Organization [facility] Address [address] [place] [address] Care Team Providers Care Registered Public Surveyor Name Role Phone Rhianna Fryefer Primary Care Provider Source Comments [facility],non-owned Affiliates and Associated Physician Practices is amultiple site organization consisting of ambulatory clinics and hospital sitesin [place], [place], [place] and [place]. This disclosure is being madepursuant to the Care Everywhere program and may not contain all information available regarding this patient. Last updated 18.[facility] Allergies Active Allergy Reactions Criticality Noted Date Comments Doxycycline Rash Medium 04/30/2019 Medications * Be aware that medications may not be up to date on this document. Alwaysverify current medications with the patient. triamterene-hyd roCHLOROthiazid e (MAXZIDE-25) 37.5-25 MG tablet 8 Active levothyroxine (SYNTHROID) 100 MCG tablet Take 100 mcg by mouth daily before breakfast Active DULoxetine (CYMBALTA) 20 MG capsule once daily 1 Active Active Problems Problem Noted Date Diagnosed Date Neoplasm of uncertain behavior of skin 1 Other seborrheic dermatitis 03/23/2021 History of actinic keratoses 03/23/2021 Inflamed seborrheic keratosis 04/30/2019 Other seborrheic keratosis 04/30/2019 Allergic rhinitis 01/02/2018 Fatigue 01/02/2018 Hypertension 01/02/2018 Low back pain 01/02/2018 Vitamin D deficiency 01/02/2018 Actinic keratoses 06/27/2017 Melanocytic nevi of trunk 06/27/2017 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 Vestibular migraine 01/01/2015 Hypothyroidism 07/24/2013 Goiter 07/23/2012 Silvia's thyroiditis 07/23/2012 Essential hypertension, benign 01/17/2012 Thyroid nodule 01/17/2012 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 Immunizations Immunization Administration Dates Next Due INFLUENZA VACCINE 03/08/2021,02/26/2019 Family History Medical History Relation Name Comments Arthritis - Osteo Brother Diabetes - Type 2 Brother Arthritis - Osteo Father CAD (Coronary Artery Disease) Father Diabetes - Type 2 Father Hypertension Father Arthritis - Osteo Mother Thyroid Disease Mother Relation Name Status Comments Brother Father Mother Social History Tobacco Use Types Packs/Day Years Used Date Smoking Tobacco: Never Smokeless Tobacco: Never Alcohol Use Standard Drinks/Week Comments Yes 3 (1 standard drink = 0.6 oz pur e alcohol) Comments No Sex and Gender Information Value Date Recorded Sex Assigned at Not on file Legal Sex Female 12:22 PM LOCATION WORKER Gender Identity Not on file Sexual Orientation Not on file Last Filed Vital Signs Vital Sign Reading Time Taken Comments Blood Pressure 182/120 04/20/2021 7:25 AM LOCATION WORKER Pulse 69 04/20/2021 7:25 AM LOCATION WORKER Temperature 36.6 C (97.8 F) 01/02/2018 2:54 PM CDT Respiratory Rate 20 12/07/2015 3:02 PM CDT Oxygen Saturation 97% 01/02/2018 2:54 PM CDT Inhaled Oxygen Concentration - - Weight 108.9 kg (240 lb) 04/20/2021 7:25 AM LOCATION WORKER Height 162.6 cm (5' 4) 04/20/2021 7:25 AM LOCATION WORKER Body Mass Index 41.2 04/20/2021 7:25 AM LOCATION WORKER Plan of Treatment Health Maintenance Due Date Last Done Comments COLOGUARD (AGES 45-75) - COL ON CA SCREENING 1970 COLON MONITORING 1970 COLONOSCOPY - COLON CA SCREENING 1969 CT COLONOGRAPHY - COLON CA SCREENING 1970 Colorectal Cancer Screening 1970 FIT - COLON CA SCREENING 1970 FLEX SIG - COLON CA SCREENING 1970 LIPID TESTING 1970 MAMMOGRAM 1970 HIV SCREENING 1984 HEPATITIS C SCREENING 10/16/1987 DTAP/TDAP/TD VACCINES (1 - Tdap) 1988 HEPATITIS B VACCINE (1 of 3 - 19+ 3-dose series) 1988 PNEUMOCOCCAL VACCINE 50+ (1 of 1 - PCV) 10/21/2019 ZOSTER VACCINE (1 of 2) 10/21/2019 SCREENING FOR DIABETES 04/20/2021 08/18/2017 COVID-19 VACCINE (1 - 2023-2 5 season) 2024 DEPRESSION SCREENING 05/29/2024 INFLUENZA VACCINE (Season Ended) 2025 03/08/2021, 02/26/2019 HIB VACCINE Aged Out No longer eligi ble based on patient's age to complete this topic HPV VACCINE Aged Out No longer eligi ble based on patient's age to complete this topic MENINGOCOCCAL (Group B) VACCINE SHARED DECISION-MAKING Aged Out No longer eligible based on patient's age to complete this topic MENINGOCOCCAL GROUPS A/C/Y/W VACCINE Aged Out No longer eligible b ased on patient's age to complete this topic Procedures Procedure Name Priority Date/Time Associated Diagnosis Comments BASIC METABOLIC PANEL (CALCIUM TOTAL) Routine 08/18/2017 8:08 AM CDT from Last 3 Months or Most Recently Relevant to Health Maintenance Results * BASIC METABOLIC PANEL (CALCIUM TOTAL) (08/18/2017 8:08 AM CDT) Glucose 99 65 - 99 mg/dL [facility] ([facility]) BUN 14 6 - 24 mg/dL [facility] ([facility]) Creatinine 0.88 0.57 - 1.00 mg/dL [facility] ([facility]) eGFR non- 78 >59 mL/min/1.7 3 [facility] ([facility]) eGFR 90 >59 mL/min/1.7 3 [facility] ([facility]) BUN/Creatinine Ratio 16 9 - 23 [facility]) Sodium 141 134 - 144 mmol/L [facility] ([facility]) Potassium 4.2 3.5 - 5.2 mmol/L [facility]) Chloride 96 96 - 106 mmol/L [facility]) CO2 27 18 - 29 mmol/L [facility] ([facility]) Calcium 10.2 8.7 - 10.2 mg/dL [facility] ([facility]) Blood specimen (specimen) BLOOD SPECIMEN / Unknown 08/18/2017 8:08 AM CDT 08/18/2017 Narrative [facility] ([facility]) - 08/19/2017 7:36 AM CDT Performed at: - [facility] [address] [place], [place] [id number] Child Care Team Lead: Gume Grace PhD, Phone: [phone] us Colby Bailey MD LAB - CHEMISTRY ORDERABLES Corry be Result [facility] ([facility]) [address] [place] [address], [facility] from Last 3 Months or Most Recently Relevant to Health Maintenance Insurance CARE CARE [employer] SELF PAY NO INSURANCE Member Subscriber Plan / Payer (Ef fective for All Dates) Name:Marion Espinal Member ID:Not on file Relation to Subscriber:Not on file Name:MARION ESPINAL Subscriber ID:Not on file Address: [address] [place] [address] Payer ID:Not on file Group ID:Not on file Type:Self Pay Address: [place], [place] [employer] SELF PAY NO INSURANCE Member Subscriber Plan / Payer (Ef fective for All Dates) Name:Marion Espinal Member ID:Not on file Relation to Subscriber:Not on file Name:MARION ESPINAL Subscriber ID:Not on file Address: [address] [place] [address] Payer ID:Not on file Group ID:Not on file Type:Self Pay Address: [place], [place] [employer] SELF PAY NO INSURANCE Member Subscriber Plan / Payer (Ef fective for All Dates) Name:Marion Espinal Member ID:Not on file Relation to Subscriber:Not on file Name:MARION ESPINAL Subscriber ID:Not on file Address: [address] [place] [phone] Payer ID:Not on file Group ID:Not on file Type:Self Pay Address: [place], [place] Care Teams Registered Public Surveyor Relationship Specialty Start Date End Date Ciera Frye DO [address] [place] [phone] PCP - General 01/02/18
--- OUTSIDE RECORDS SUMMARY | 2024-11-07 04:38 | XMS_ITS | Data Portability ---
Author Organization [facility], [facility] Address [address] [place] [address] Assessment No assessment recorded. Plan of Treatment Reminders Order Date Submit Date Provider Last Modified By Organization Details Last Modified Time Details Appointments None recorded. Lab CMP, serum or plasma 2015 016 DBA_PATCH_2 [id number] Not available 6 04:20:37 vitamin D3, 25-hydrox y, serum 2015 016 DBA_PATCH_2 [id number] Not available 6 04:20:38 T3, free, serum or plasma 2015 016 DBA_PATCH_2 [id number] Not available 6 04:20:39 TSH + free T4, serum 2015 016 DBA_PATCH_2 [id number] Not available 6 04:20:35 immunoglo bulins iga+igg+i gm, quantitat laura, serum 2015 016 DBA_PATCH_2 [id number] Not available 6 04:20:04 CBC w/ diff 2015 016 DBA_PATCH_2 [id number] Not available 6 04:20:06 T3, free, serum or plasma 2015 016 DBA_PATCH_2 [id number] Not available 6 04:20:06 TSH, serum or plasma 2015 016 DBA_PATCH_2 [id number] Not available 6 04:20:02 T3, reverse, serum 2015 016 DBA_PATCH_2 [id number] Not available 6 04:20:07 T4, free, serum 2015 016 DBA_PATCH_2 [id number] Not available 6 04:20:06 vitamin B12 + folate, serum or blood 2015 016 DBA_PATCH_2 [id number] Not available 6 04:19:57 vitamin D3, 25-hydrox y, serum 2015 016 DBA_PATCH_2 [id number] Not available 6 04:20:01 CMP, serum or plasma 2015 016 DBA_PATCH_2 [id number] Not available 6 04:20:02 CBC 2015 016 DBA_PATCH_2 [id number] Not available 6 04:20:04 judit-b arr virus (ebv) IgG + IgM panel, serum 2015 016 DBA_PATCH_2 [id number] Not available 6 04:20:07 Referral physical therapist referral - back muscle tension and pain 2014 015 [email or web address] Not available 5 10:35:11 Procedures None recorded. Surgeries None recorded. Imaging XR, sinuses 2015 016 DBA_PATCH_2 [id number] [facility], [address], [place], [address], 6 04:20:02 x-ray, chest 2015 DBA_PATCH_2 [id number] Not available 6 04:20:01 Medication Orders Advair Diskus 250 mcg-50 mcg/dose powder for inhalatio n 2015 DBA_PATCH_2 [id number] [facility]58845, [address], [place], [id number], 6 04:20:07 Biaxin 500 mg tablet 2015 016 DBA_PATCH_2 [id number] [facility] #83656, [address], [place], [id number], 6 04:20:01 ProAir HFA 90 mcg/actua tion aerosol inhaler 2015 016 DBA_PATCH_2 [id number] [facility] #98307, [address] [place], [place], [id number], 6 04:20:04 Silica (Silicea) 2014 015 cwartis [facility], [address] [place], [place], [id number], 6 13:09:38 Arnica [place] 2014 015 [email or web address] [facility] #81953, [address] [place], [place], [id number], 6 14:28:40 Lidoderm 5 % topical patch 2014 015 INTERFACE [facility] #46056, [address] [place], [place], [id number], 5 18:36:58 [facility] roid 113.75 mg tablet 2014 015 INTERFACE [facility], [address] [place] [address], [id number], 5 18:36:55 Patient TargetsNo targets recorded. Patient Instructions Encounter Date Encounter Id Patient Instructions Last Modified By Organization Details Last Modified Time 12/03/2014 [id number] allergies: care instructions [email or web address] Not available 12/04/2014 09:02:50 managing your allergies: care instructions [email or web address] Not available 12/04/2014 09:02:50 back care and preventing injuries: care instructions jblechle Not available 12/04/2014 09:02:50 getting back to normal after low back pain: care instructions jblechle Not available 12/04/2014 09:02:50 learning about relief for back pain jblechle Not available 12/04/2014 09:02:50 For back pain support: curcumin 2000 mg daily (Organic Moira or at office) Medications reviewed, side effects discussed. Call or return to clinic if questions or concerns. Return to clinic if symptoms worsen or persist. Not available 12/03/2014 18:36:51 10/29/2015 [id number] Referral to Michelle Chowdary for thyroid nodules [email or web address] Not available 10/29/2015 14:38:35 11/19/2015 [id number] controlling your asthma: care instructions [email or web address] Not available 11/20/2015 08:26:54 learning about asthma jblechle Not available 11/20/2015 08:26:54 cough: care instructions jblechle Not available 11/20/2015 08:26:55 12/24/2015 [id number] Con't the same Anti inflammatory diet off Gluten dairy sugar cwessling Not available 12/24/2015 13:25:19 03/31/2016 [id number] managing your allergies: care instructions smimms Not available 03/31/2016 14:46:50 minimize starches cwessling Not available 03/31/2016 14:23:56 Reason for Referral back muscle tension and pain Referring Physician: Dorothy Guillory, Family Medicine, Encounter Date: 12/03/2014 Results Created Date Observation Date Name Description Value Unit Range Abnormal Flag Note LastModifiedBy Organization Detail LastModifiedTime 11/07/19 15 11/07/2014 T4, free, serum T4,free(dire ct) 1.16 NG/dL 0.82-1 .77 Not Available [facility] ([facility]) [address] [place], [address], 11/07/2014 06:41:18 11/07/19 15 11/07/2014 TSH, serum or plasm a TSH 0.068 uIU/m L 0.450- 4.500 low Not Available [facility] ([facility]) [address] [place], [address], 11/07/2014 06:41:19 11/07/19 15 11/07/2014 T3, free, serum or plasm a triiodothyro nine,free,se rum 3.2 pg/mL 2.0-4. 4 Not Available [facility] ([facility]) [address] [place], [id number], 11/07/2014 06:41:19 10/29/19 16 10/30/2015 CBC WBC 6.5 x10e3 /uL 3.4-10 .8 Not Available [facility] ([facility]) [address] [place], [id number], 11/01/2015 16:35:30 10/29/19 16 10/30/2015 CBC RBC 5.21 x10e6 /uL 3.77-5 .28 Not Available [facility] ([facility]) [address] [place], [address], 11/01/2015 16:35:30 10/29/19 16 10/30/2015 CBC hemoglobin 14.1 g/dL 11.1-1 5.9 Not Available [facility] ([facility]) [address] [place], [address], 11/01/2015 16:35:30 10/29/19 16 10/30/2015 CBC hematocrit 45.0 % 34.0-4 6.6 Not Available [facility] ([facility]) [address] [place], [address], 11/01/2015 16:35:30 10/29/19 16 10/30/2015 CBC MCV 86 fL 79-97 Not Available [facility] ([facility]) [address] [place], [address], 11/01/2015 16:35:30 10/29/19 16 10/30/2015 CBC MCH 27.1 pg 26.6-3 3.0 Not Available [facility] ([facility]) [address] [facility], [place], [address], 11/01/2015 16:35:30 10/29/19 16 10/30/2015 CBC MCHC 31.3 g/dL 31.5-3 5.7 below low normal Not Available [facility] ([facility]) [address] [facility], [place], [id number], 11/01/2015 16:35:30 10/29/19 16 10/30/2015 CBC RDW 15.2 % 12.3-1 5.4 Not Available [facility] ([facility]) [address] [facility], [place], [id number], 11/01/2015 16:35:30 10/29/19 16 10/30/2015 CBC platelets 192 x10e3 /uL 150-37 9 Not Available [facility] ([facility]) [address] [facility], [place], [address], 11/01/2015 16:35:30 10/29/19 16 10/30/2015 CBC neutrophils 63 % Not Avai lable [facility] ([facility]) [address] [place], [id number], 11/01/2015 16:35:30 10/29/19 16 10/30/2015 CBC lymphs 21 % Not Available [facility] ([facility]) [address] [facility], [place], [address], 11/01/2015 16:35:30 10/29/19 16 10/30/2015 CBC monocytes 10 % Not Availa ble [facility] ([facility]) [address] [facility], [place], [id number], 11/01/2015 16:35:30 10/29/19 16 10/30/2015 CBC eos 5 % Not Available [facility] ([facility]) [address] [facility], [place], [id number], 11/01/2015 16:35:30 10/29/19 16 10/30/2015 CBC basos 1 % Not Available [facility] ([facility]) [address] [facility], [place], [address], 11/01/2015 16:35:30 10/29/19 16 10/30/2015 CBC immature cells BUSINESS SERVICES ADMINISTRATOR Not Available [facility] ([facility]) [address] [facility], [place], [address], 11/01/2015 16:35:30 10/29/19 16 10/30/2015 CBC neutrophils (absolute) 4.1 x10e3 /uL 1.4-7. 0 Not Available [facility] ([facility]) [address] [facility], [place], [address], 11/01/2015 16:35:30 10/29/19 16 10/30/2015 CBC lymphs (absolute) 1.4 x10e3 /uL 0.7-3. 1 Not Available [facility] ([facility]) [address] [facility], [place], [address], 11/01/2015 16:35:30 10/29/19 16 10/30/2015 CBC monocytes(ab solute) 0.7 x10e3 /uL 0.1-0. 9 Not Available [facility] ([facility]) [address] [facility], [place], [address], 11/01/2015 16:35:30 10/29/19 16 10/30/2015 CBC eos (absolute) 0.3 x10e3 /uL 0.0-0. 4 Not Available [facility] ([facility]) [address] [facility], [place], [address], 11/01/2015 16:35:30 10/29/19 16 10/30/2015 CBC baso (absolute) 0.0 x10e3 /uL 0.0-0. 2 Not Available [facility] ([facility]) [address] [facility], [place], [address], 11/01/2015 16:35:30 10/29/19 16 10/30/2015 CBC immature granulocytes 0 % Not Available [facility] ([facility]) [address] [place], [address], 11/01/2015 16:35:30 10/29/19 16 10/30/2015 CBC immature grans (abs) 0.0 x10e3 /uL 0.0-0. 1 Not Available [facility] ([facility]) [address] [place], [address], 11/01/2015 16:35:30 10/29/19 16 10/30/2015 CBC NRBC BUSINESS SERVICES ADMINISTRATOR Not Available [facility] ([facility]) [address] [place], [address], 11/01/2015 16:35:30 10/29/19 16 10/30/2015 CBC hematology comments: BUSINESS SERVICES ADMINISTRATOR Not Available [facility] ([facility]) [address] [place], [address], 11/01/2015 16:35:30 10/29/19 16 10/30/2015 CMP, serum or plasm a glucose, serum 80 mg/dL 65-99 Not Available [facility] ([facility]) [address] [place], [address], 11/01/2015 16:35:31 10/29/19 16 10/30/2015 CMP, serum or plasm a BUN 15 mg/dL 6-24 Not Available [facility] ([facility]) [address] [place], [address], 11/01/2015 16:35:31 10/29/19 16 10/30/2015 CMP, serum or plasm a creatinine, serum 0.83 mg/dL 0.57-1 .00 Not Available [facility] ([facility]) [address] [place], [address], 11/01/2015 16:35:31 10/29/19 16 10/30/2015 CMP, serum or plasm a eGFR if nonafricn AM 85 mL/mi n/1.7 3 >59 Not Available [facility] ([facility]) [address] [place], [id number], 11/01/2015 16:35:31 10/29/19 16 10/30/2015 CMP, serum or plasm a eGFR if africn AM 98 mL/mi n/1.7 3 >59 Not Available [facility] ([facility]) [address] [place], [id number], 11/01/2015 16:35:31 10/29/19 16 10/30/2015 CMP, serum or plasm a BUN/creatini ne ratio 18 9-23 Not Available [facility] ([facility]) [address] [place], [id number], 11/01/2015 16:35:31 10/29/19 16 10/30/2015 CMP, serum or plasm a sodium, serum 143 mmol/ L 134-14 4 Not Available [facility] ([facility]) [address] [place], [address], 11/01/2015 16:35:31 10/29/19 16 10/30/2015 CMP, serum or plasm a potassium, serum 4.2 mmol/ L 3.5-5. 2 Not Available [facility] ([facility]) [address] [place], [address], 11/01/2015 16:35:31 10/29/19 16 10/30/2015 CMP, serum or plasm a chloride, serum 99 mmol/ L 97-108 Not Available [facility] ([facility]) [address] [place], [address], 11/01/2015 16:35:31 10/29/19 16 10/30/2015 CMP, serum or plasm a carbon dioxide, total 25 mmol/ L 18-29 Not Available [facility] ([facility]) [address] [place], [address], 11/01/2015 16:35:31 10/29/19 16 10/30/2015 CMP, serum or plasm a calcium, serum 9.8 mg/dL 8.7-10 .2 Not Available [facility] ([facility]) [address] [place], [address], 11/01/2015 16:35:31 10/29/19 16 10/30/2015 CMP, serum or plasm a protein, total, serum 7.2 g/dL 6.0-8. 5 Not Available [facility] ([facility]) [address] [place], [address], 11/01/2015 16:35:31 10/29/19 16 10/30/2015 CMP, serum or plasm a albumin, serum 4.6 g/dL 3.5-5. 5 Not Available [facility] ([facility]) [address] [place], [address], 11/01/2015 16:35:31 10/29/19 16 10/30/2015 CMP, serum or plasm a globulin, total 2.6 g/dL 1.5-4. 5 Not Available [facility] ([facility]) [address] [place], [address], 11/01/2015 16:35:31 10/29/19 16 10/30/2015 CMP, serum or plasm a A/G ratio 1.8 1.1-2. 5 Not Available [facility] ([facility]) [address] [place], [address], 11/01/2015 16:35:31 10/29/19 16 10/30/2015 CMP, serum or plasm a bilirubin, total 0.5 mg/dL 0.0-1. 2 Not Available [facility] ([facility]) [address] [place] [address], [address], 11/01/2015 16:35:31 10/29/19 16 10/30/2015 CMP, serum or plasm a alkaline phosphatase, S 84 IU/L 39-117 Not Available [facility] ([facility]) [address] [facility], [place], [address], 11/01/2015 16:35:31 10/29/19 16 10/30/2015 CMP, serum or plasm a AST (SGOT) 30 IU/L 0-40 Not Available [facility] ([facility]) [address] [facility], [place], [address], 11/01/2015 16:35:31 10/29/19 16 10/30/2015 CMP, serum or plasm a ALT (SGPT) 41 IU/L 0-32 above high normal Not Available [facility] ([facility]) [address] [facility], [place], [address], 11/01/2015 16:35:31 10/29/19 16 10/29/2015 epste in-ba rr virus (ebv) Ab, serum interpretati on: COMMEN T EBV INTER PRETA TION CHART INTER PRETA TION EBV-I GM EA(D) -IGG VCA-I GG EBNA- IGG EBV SERON EGATI VE - - - - EARLY PHASE + - - - ACUTE PRIMA RY + +OR- + - INFEC TION CONVA LESCE NCE/P AST - +OR- + + INFEC TION REACT IVATE D +OR- + + + INFEC TION + ANTIB CARTER PRESE NT - ANTIB CARTER ABSEN T Not Available [facility] ([facility]) [address] [facility], [place], [address], 11/01/2015 16:35:31 10/29/19 16 10/30/2015 epste in-ba rr virus (ebv) Ab, serum ebv Ab vca, IgM <36.0 U/mL 0.0-35 .9 NEGAT LAURA <36.0 EQUIV OCAL 36.0 - 43.9 POSIT LAURA >43.9 Not Available [facility] ([facility]) [address] [facility], [place], [address], 11/01/2015 16:35:31 10/29/19 16 10/30/2015 epste in-ba rr virus (ebv) Ab, serum ebv early antigen Ab, IgG 21.2 U/mL 0.0-8. 9 above high normal HEPAT ITIS A, HEPAT ITIS C AND HIV ANTIB ODIES MAY CROSS -REAC T WITH THIS ASSAY . NEGAT LAURA < 9.0 EQUIV OCAL 9.0 - 10.9 POSIT LAURA >10.9 Not Available [facility] ([facility]) [address] [place], [address], 11/01/2015 16:35:31 10/29/19 16 10/30/2015 epste in-ba rr virus (ebv) Ab, serum ebv Ab vca, IgG >600.0 U/mL 0.0-17 .9 above high normal NEGAT LAURA <18.0 EQUIV OCAL 18.0 - 21.9 POSIT LAURA >21.9 Not Available [facility] ([facility]) [address] [place], [address], 11/01/2015 16:35:31 10/29/19 16 10/30/2015 epste in-ba rr virus (ebv) Ab, serum ebv nuclear antigen Ab, IgG 71.2 U/mL 0.0-17 .9 above high normal NEGAT LAURA <18.0 EQUIV OCAL 18.0 - 21.9 POSIT LAURA >21.9 Not Available [facility] ([facility]) [address] [place], [address], 11/01/2015 16:35:31 10/29/19 16 10/30/2015 vitam in B12 + folat e, serum or blood vitamin B12 969 pg/mL 211-94 6 above high normal Not Available [facility] ([facility]) [address] [place], [address], 11/01/2015 16:35:32 10/29/19 16 10/30/2015 vitam in B12 + folat e, serum or blood folate (folic acid), serum 12.7 NG/mL >3.0 A SERUM FOLAT E MARYANA NTRAT ION OF LESS THAN 3.1 NG/ML IS CONSI DERED TO REPRE SENT CLINI [facility] DEFIC IENCY . Not Available [facility] ([facility]) [address] [facility], [place], [address], 11/01/2015 16:35:32 10/29/19 16 10/30/2015 vitam in D, 25-hy droxy , total , serum vitamin D, 25-hydroxy 64.7 NG/mL 30.0-1 00.0 VITAM IN D DEFIC IENCY HAS BEEN DEFIN ED BY THE INSTI TUTE OF MEDIC INE AND AN ENDOC RINE SOCIE TY PRACT ICE GUIDE LINE A LEVEL OF SERUM 25-OH VITAM IN D LESS THAN 20 NG/ML (1,2) . THE ENDOC RINE SOCIE TY [facility] ER DEFIN E VITAM IN D INSUF FICIE NCY A LEVEL BETWE EN 21 AND 29 NG/ML (2). 1. IOM (INST ITUTE OF MEDIC INE). 2009. DEBBYA RY REFER ENCE RONNIE ES FOR CALCI UM AND D. LUIS ACKERMAN DC: THE NATIO NAL [facility] PRESS . 2. ANA PAULA Ruffin MF, MELISSA DU NC, KARLA OFF-F ERRAR I NERI, ET AL. EVALU ATION , TREAT MENT, AND PREVE NTION OF VITAM IN D DEFIC IENCY : AN ENDOC RINE SOCIE TY CLINI [facility] PRACT ICE GUIDE LINE. JCEM. 2010; 96(7) :1911 -30. Not Available [facility] ([facility]) [address] [facility], [place], [address], 11/01/2015 16:35:32 10/29/19 16 10/30/2015 T4, free, serum T4,free(dire ct) 1.01 NG/dL 0.82-1 .77 Not Available [facility] ([facility]) [address] [facility], [place], [address], 11/01/2015 16:35:32 10/29/19 16 10/30/2015 TSH, serum or plasm a TSH 1.850 uIU/m L 0.450- 4.500 Not Available [facility] ([facility]) [address] [place], [id number], 11/01/2015 16:35:33 10/29/19 16 11/01/2015 T3, rever se, serum reverse T3, serum 26.1 NG/dL 9.2-24 .1 above high normal Not Available [facility] ([facility]) [address] [place], [id number], 11/01/2015 16:35:33 10/29/19 16 10/30/2015 T3, free, serum or plasm a triiodothyro nine,free,se rum 4.0 pg/mL 2.0-4. 4 Not Available [facility] ([facility]) [address] [place], [address], 11/01/2015 16:35:33 12/01/19 16 12/02/2015 CBC w/ auto diff WBC 8.2 x10e3 /uL 3.4-10 .8 Not Available [facility] ([facility]) [address] [place], [address], 12/02/2015 06:05:43 12/01/19 16 12/02/2015 CBC w/ auto diff RBC 5.38 x10e6 /uL 3.77-5 .28 above high normal Not Available [facility] ([facility]) [address] [place], [address], 12/02/2015 06:05:43 12/01/19 16 12/02/2015 CBC w/ auto diff hemoglobin 14.8 g/dL 11.1-1 5.9 Not Available [facility] ([facility]) [address] [place], [address], 12/02/2015 06:05:43 12/01/19 16 12/02/2015 CBC w/ auto diff hematocrit 44.8 % 34.0-4 6.6 Not Available [facility] ([facility]) [address] [place], [address], 12/02/2015 06:05:43 12/01/19 16 12/02/2015 CBC w/ auto diff MCV 83 fL 79-97 Not Available [facility] ([facility]) [address] [facility], [place], [address], 12/02/2015 06:05:43 12/01/19 16 12/02/2015 CBC w/ auto diff MCH 27.5 pg 26.6-3 3.0 Not Available [facility] ([facility]) [address] [facility], [place], [address], 12/02/2015 06:05:43 12/01/19 16 12/02/2015 CBC w/ auto diff MCHC 33.0 g/dL 31.5-3 5.7 Not Available [facility] ([facility]) [address] [facility], [place], [address], 12/02/2015 06:05:43 12/01/19 16 12/02/2015 CBC w/ auto diff RDW 14.8 % 12.3-1 5.4 Not Available [facility] ([facility]) [address] [facility], [place], [address], 12/02/2015 06:05:43 12/01/19 16 12/02/2015 CBC w/ auto diff platelets 233 x10e3 /uL 150-37 9 Not Available [facility] ([facility]) [address] [facility], [place], [address], 12/02/2015 06:05:43 12/01/19 16 12/02/2015 CBC w/ auto diff neutrophils 70 % Not Available [facility] ([facility]) [address] [place], [address], 12/02/2015 06:05:43 12/01/19 16 12/02/2015 CBC w/ auto diff lymphs 20 % Not Available [facility] ([facility]) [address] [place], [address], 12/02/2015 06:05:43 12/01/19 16 12/02/2015 CBC w/ auto diff monocytes 6 % Not Available [facility] ([facility]) [address] [place], [address], 12/02/2015 06:05:43 12/01/19 16 12/02/2015 CBC w/ auto diff eos 3 % Not Available [facility] ([facility]) [address] [place], [address], 12/02/2015 06:05:43 12/01/19 16 12/02/2015 CBC w/ auto diff basos 1 % Not Available [facility] ([facility]) [address] [place], [address], 12/02/2015 06:05:43 12/01/19 16 12/02/2015 CBC w/ auto diff immature cells BUSINESS SERVICES ADMINISTRATOR Not Available [facility] ([facility]) [address] [place], [address], 12/02/2015 06:05:43 12/01/19 16 12/02/2015 CBC w/ auto diff neutrophils (absolute) 5.7 x10e3 /uL 1.4-7. 0 Not Available [facility] ([facility]) [address] [place], [address], 12/02/2015 06:05:43 12/01/19 16 12/02/2015 CBC w/ auto diff lymphs (absolute) 1.7 x10e3 /uL 0.7-3. 1 Not Available [facility] ([facility]) [address] [place], [address], 12/02/2015 06:05:43 12/01/19 16 12/02/2015 CBC w/ auto diff monocytes(ab solute) 0.5 x10e3 /uL 0.1-0. 9 Not Available [facility] ([facility]) [address] [place], [address], 12/02/2015 06:05:43 12/01/19 16 12/02/2015 CBC w/ auto diff eos (absolute) 0.3 x10e3 /uL 0.0-0. 4 Not Available [facility] ([facility]) [address] [facility], [place], [address], 12/02/2015 06:05:43 12/01/19 16 12/02/2015 CBC w/ auto diff baso (absolute) 0.1 x10e3 /uL 0.0-0. 2 Not Available [facility] ([facility]) [address] [facility], [place], [address], 12/02/2015 06:05:43 12/01/19 16 12/02/2015 CBC w/ auto diff immature granulocytes 0 % Not Available [facility] ([facility]) [address] [place], [address], 12/02/2015 06:05:43 12/01/19 16 12/02/2015 CBC w/ auto diff immature grans (abs) 0.0 x10e3 /uL 0.0-0. 1 Not Available [facility] ([facility]) [address] [place], [address], 12/02/2015 06:05:43 12/01/19 16 12/02/2015 CBC w/ auto diff NRBC BUSINESS SERVICES ADMINISTRATOR Not Available [facility] ([facility]) [address] [place], [address], 12/02/2015 06:05:43 12/01/19 16 12/02/2015 CBC w/ auto diff hematology comments: BUSINESS SERVICES ADMINISTRATOR A HAND- WRITT EN PANEL /PROF ILE WAS RECEI URI FROM YOUR OFFIC E. IN ACCOR DANCE WITH THE [facility] VU LAURENT TEST CODE POLIC Y DATED NOVEMBER 2002, WE HAVE ASSIG JOE CBC WITH DIFFE RENTI AL/PL ATELE T, TEST CODE #[address] IF THIS IS NOT THE TESTI NG YOU WISHE D TO RECEI VE ON THIS SPECI MEN, PLEAS E CONTA CT THE [facility] RP CLIEN T INQUI RY/ TECHN ICAL SERVI EZIO DEPAR TMENT TO JOSE FY THE TEST ORDER . WE APPRE CIATE YOUR BUSIN ESS. Not Available [facility] ([facility]) [address] [place], [address], 12/02/2015 06:05:43 12/01/19 16 12/02/2015 immun oglob ulins iga+i gg+ig m, quant itati ve, serum immunoglobul in g, qn, serum 1087 mg/dL 700-16 00 Not Available [facility] ([facility]) [address] [place], [address], 12/02/2015 06:05:44 12/01/19 16 12/02/2015 immun oglob ulins iga+i gg+ig m, quant itati ve, serum immunoglobul in A, qn, serum 206 mg/dL 87-352 Not Available [facility] ([facility]) [address] [place], [address], 12/02/2015 06:05:44 12/01/19 16 12/02/2015 immun oglob ulins iga+i gg+ig m, quant itati ve, serum immunoglobul in M, qn, serum 79 mg/dL 26-217 Not Available [facility] ([facility]) [address] [place], [address], 12/02/2015 06:05:44 04/05/20 16 04/06/2016 TSH + free T4, serum TSH 1.790 uIU/m L 0.450- 4.500 Not Available [facility] ([facility]) [address] [place], [address], 04/06/2016 06:09:31 04/05/20 16 04/06/2016 TSH + free T4, serum T4,free(dire ct) 1.05 NG/dL 0.82-1 .77 Not Available [facility] ([facility]) [address] [place], [address], 04/06/2016 06:09:31 04/05/20 16 04/06/2016 CMP, serum or plasm a glucose, serum 96 mg/dL 65-99 Not Available [facility] ([facility]) [address] [place], [address], 04/06/2016 06:09:32 04/05/20 16 04/06/2016 CMP, serum or plasm a BUN 14 mg/dL 6-24 Not Available [facility] ([facility]) [address] [place], [address], 04/06/2016 06:09:32 04/05/20 16 04/06/2016 CMP, serum or plasm a creatinine, serum 0.71 mg/dL 0.57-1 .00 Not Available [facility] ([facility]) [address] [place], [address], 04/06/2016 06:09:32 04/05/20 16 04/06/2016 CMP, serum or plasm a eGFR if nonafricn AM 102 mL/mi n/1.7 3 >59 Not Available [facility] ([facility]) [address] [facility], [place], [address], 04/06/2016 06:09:32 04/05/20 16 04/06/2016 CMP, serum or plasm a eGFR if africn AM 118 mL/mi n/1.7 3 >59 Not Available [facility] ([facility]) [address] [place], [address], 04/06/2016 06:09:32 04/05/20 16 04/06/2016 CMP, serum or plasm a BUN/creatini ne ratio 20 9-23 Not Available [facility] ([facility]) [address] [place], [address], 04/06/2016 06:09:32 04/05/20 16 04/06/2016 CMP, serum or plasm a sodium, serum 143 mmol/ L 136-14 4 Not Available [facility] ([facility]) [address] [place], [address], 04/06/2016 06:09:32 04/05/20 16 04/06/2016 CMP, serum or plasm a potassium, serum 4.2 mmol/ L 3.5-5. 2 Not Available [facility] ([facility]) [address] [place], [address], 04/06/2016 06:09:32 04/05/20 16 04/06/2016 CMP, serum or plasm a chloride, serum 100 mmol/ L 97-106 Not Available [facility] ([facility]) [address] [place], [address], 04/06/2016 06:09:32 04/05/2004/06/2016 CMP, serum or plasm a carbon dioxide, total 28 mmol/ L 18-29 Not Available [facility] ([facility]) [address] [place], [address], 04/06/2016 06:09:32 04/05/2004/06/2016 CMP, serum or plasm a calcium, serum 9.9 mg/dL 8.7-10 .2 Not Available [facility] ([facility]) [address] [place], [address], 04/06/2016 06:09:32 04/05/2004/06/2016 CMP, serum or plasm a protein, total, serum 7.4 g/dL 6.0-8. 5 Not Available [facility] ([facility]) [address] [place], [address], 04/06/2016 06:09:32 04/05/2004/06/2016 CMP, serum or plasm a albumin, serum 4.5 g/dL 3.5-5. 5 Not Available [facility] ([facility]) [address] [place], [address], 04/06/2016 06:09:32 04/05/20 16 04/06/2016 CMP, serum or plasm a globulin, total 2.9 g/dL 1.5-4. 5 Not Available [facility] ([facility]) [address] [place], [address], 04/06/2016 06:09:32 04/05/20 16 04/06/2016 CMP, serum or plasm a A/G ratio 1.6 1.1-2. 5 Not Available [facility] ([facility]) [address] [place], [address], 04/06/2016 06:09:32 04/05/20 16 04/06/2016 CMP, serum or plasm a bilirubin, total 0.5 mg/dL 0.0-1. 2 Not Available [facility] ([facility]) [address] [place], [address], 04/06/2016 06:09:32 04/05/20 16 04/06/2016 CMP, serum or plasm a alkaline phosphatase, S 80 IU/L 39-117 Not Available [facility] ([facility]) [address] [place], [address], 04/06/2016 06:09:32 04/05/20 16 04/06/2016 CMP, serum or plasm a AST (SGOT) 14 IU/L 0-40 Not Available [facility] ([facility]) [address] [place], [address], 04/06/2016 06:09:32 04/05/20 16 04/06/2016 CMP, serum or plasm a ALT (SGPT) 20 IU/L 0-32 Not Available [facility] ([facility]) [address] [place], [address], 04/06/2016 06:09:32 04/05/20 16 04/06/2016 vitam in D3, 25-hy droxy , serum vitamin D, 25-hydroxy 65.9 NG/mL 30.0-1 00.0 VITAM IN D DEFIC IENCY HAS BEEN DEFIN ED BY THE INSTI TUTE OF MEDIC INE AND AN ENDOC RINE SOCIE TY PRACT ICE GUIDE LINE A LEVEL OF SERUM 25-OH VITAM IN D LESS THAN 20 NG/ML (1,2) . THE ENDOC RINE SOCIE TY [facility] ER DEFIN E VITAM IN D INSUF FICIE NCY A LEVEL BETWE EN 21 AND 29 NG/ML (2). 1. IOM (INST ITUTE OF MEDIC INE). 2010. DIETA RY REFER ENCE INTAK ES FOR CALCI UM AND D. LUIS ACKERMAN DC: [facility] PRESS . 2. ANA PAULA Ruffin MF, MELISSA DU NC, KARLA OFF-F ERRRODRICK I NERI, ET AL. EVALU ATION , TREAT MENT, AND PREVE NTION OF VITAM IN D DEFIC IENCY : AN ENDOC RINE SOCIE TY CLINI MARCELLA PRACT ICE GUIDE LINE. JCEM. 2010; 96(7) :1911 -30. Not Available [facility] ([facility]) [address] [facility], [place], [address], 04/06/2016 06:09:34 04/05/20 16 04/06/2016 T3, free, serum or plasm a triiodothyro nine,free,se rum 3.0 pg/mL 2.0-4. 4 Not Available [facility] ([facility]) [address] [facility], [place], [address], 04/06/2016 06:09:35 10/29/19 16 10/29/2015 imagi ng/di agnos tic resul t No observ ation record ed. JAYDE Not Available 2015 09:17:36 12/01/19 16 12/01/2015 XR, sinus es No observ ation record ed[facility] [address], [place], [address], 12/24/2015 13:07:21 Result Notes None recorded. Problems Name Problem SNOMED Code Status Onset Date Resolution Date Notes Provider Name and Address Organization Details Recorded Time Hypothyroidism 83004258 Active [facility]en [facility] 6 13:30:19 Fatigue 90128699 Active [facility] oren [facility] 6 13:30:19 Hypertensive disorder 20118948 Active [facility] 6 13:30:19 Vitamin D deficiency 75561698 [facility] oren [facility] 6 13:30:19 Allergic rhinitis 75697753 [facility] 6 13:30:19 Food intolerance 47697446 [facility] 6 13:30:19 Low back pain 489846297 [facility] 6 13:30:19 Problem Notes None recorded. Procedures Surgical History Date Name Laterality Status Provider Name and Address Organization Details Recorded Time 05/29/19 11 Date of Last Pap Smear completed Umu Lau [facility] Horace, [facility] 05/05/2014 11:18:44 Hysterectomy completed Dorothy Guillory [facility] 05/05/2014 11:47:14 Cholecystectomy completed [facility] 05/05/2014 11:47:14 Imaging Results None recorded. Procedure Notes None recorded. Medical Equipment None Reported. Allergies No known drug allergies Medications Name Sig Start Date Stop Date Status Note LastModified by Organization Details LastModified Time Silica (Silicea) 200c 1m x 2 doses 12/23 completed Not Available Not Available Not Available Arnica [place] 200c 1m x 2 doses, then 12x 5 pellets BID x 2-3 weeks 10/28 completed Not Available Not Available Not Available amoxicillin 500 mg capsule 10/28 completed Not Available Not Available Not Available clarithromy naresh 500 mg tablet TK 1 T PO Q 12 H 12/23 completed Not Available Not Available Not Available lidocaine 5 % topical patch APPLY 1 PATCH TO THE SKIN ONCE D MAY WEAR UP TO 12 H 10/28 completed Not Available Not Available Not Available Advair Diskus 250 mcg-50 mcg/dose powder for inhalation Inhale 1 puff twice a day by inhalatio n route. active Not Available Not Available No t Available Synthroid 75 mcg tablet Take 1 tablet every day by oral route. active Not Available Not Available No t Available triamterene 37.5 mg-hydrochl orothiazide 25 mg tablet Take 1 tablet by mouth every day 2016 active Not Available Not Available Not Avai lable fluticasone propionate 50 mcg/actuati on nasal spray,suspe nsion as needed active Not Available Not Available No t Available doxycycline hyclate 100 mg tablet TK 1 T PO BID active Not Available Not Available No t Available Triamterene W/Hctz 37.5 mg-25 mg capsule 12/23 completed Not Available Not Available Not Available ProAir HFA 90 mcg/actuati on aerosol inhaler INL 2 PFS PO Q 4 H active Not Available Not Available No t Available hydrochloro thiazide 12.5 mg tablet 10/28 completed Not Available Not Available Not Available Zyrtec 10 mg capsule Take 1 capsule every day by oral route. 03/31 completed Not Available Not Available Not Available Nature-Thro id 97.5 mg tablet TK 1 T PO QD active Not Available Not Available No t Available Nicolasa Allergy 180 mg tablet Take 1 tablet every day by oral route. active Not Available Not Available No t Available Nature-Thro id 113.75 mg tablet Take 1 tablet by mouth every day 2016 active Not Available Not Available Not Avai lable Vitals Date Recorded Body height Body weight Body mass index (BMI) Heart rate Body temperature Systolic blood pressure Diastolic blood pressure Provider Name and Address Organization Details Last Updated DateTime 6 162.56 cm 757391. 8 g 40.5 kg/m2 73 /min 91 [degF] 131 mm[Hg] 89 mm[Hg] Yimi MONTANO [facility] 6 13:46:41 Date Recorded Body height Body weight Body mass index (BMI) Body temperature Heart rate Systolic blood pressure Diastolic blood pressure Provider Name and Address Organization Details Last Updated DateTime 6 162.56 cm 761509. 61 g 40.2 kg/m2 98.3 [degF] 92 /min 117 mm[Hg] 83 mm[Hg] Umu [facility] 6 17:26:26 Date Recorded Body weight Heart rate Body mass index (BMI) Body height Systolic blood pressure Diastolic blood pressure Provider Name and Address Organization Details Last Updated DateTime 5 432136. 967187 g 62 /min 39.9 kg/m2 162.56 cm 127 mm[Hg] 84 mm[Hg] Umu [facility] 5 17:35:57 Date Recorded Body height Body weight Body mass index (BMI) Heart rate Systolic blood pressure Diastolic blood pressure Provider Name and Address Organization Details Last Updated DateTime 6 162.56 cm 692040. 4 g 39.6 kg/m2 77 /min 117 mm[Hg] 81 mm[Hg] Umu [facility] 6 12:05:28 Date Recorded Body height Body weight Body mass index (BMI) Heart rate Systolic blood pressure Diastolic blood pressure Provider Name and Address Organization Details Last Updated DateTime 6 162.56 cm 976195. 43 g 39.8 kg/m2 76 /min 117 mm[Hg] 78 mm[Hg] Anna Potter [facility] 6 13:30:30 Social History None recorded. Functional Status Question Answer Note LastModified by Organizat ion Details LastModified Time What is your level of alcohol consumption? Occasional amalic Information not available 05/05/2014 Mental Status None recorded. Family History Relationship Description Onset Age of this Age Resolved Age Notes LastModified by Organization Details LastModified Time Maternal Grandmother Depressive disorder Not available 2013 11:47:15 Maternal Grandmother Osteoporosis [email or web address] Not available 05/05/2014 11:47:15 Maternal Grandmother Hypothyroidi sm [email or web address] Not available 2013 11:47:15 Maternal Grandfather Malignant neoplasm of lung [email or web address] Not available 2013 11:47:15 Maternal Grandfather Osteoporosis [email or web address] Not available 05/05/2014 11:47:15 Medical History Condition Response Coronary Artery Disease N Gout N Kidney Stones N Blood Diseases N Hyperthyroidism N Depression N COPD N Hypothyroidism Y Developmental or Behavioral Disorders N Anxiety Disorder N Muscle, Joint, or Bone Problems N Vision or Eye Problems N Arthritis N Head Injury/Concussion N Congenital Anomalies N Cancer N Stroke N ADHD N Bladder or Kidney Problems N Hospital Admission other than N High Cholesterol N Liver Disease N Headaches N Fibromyalgia N Kidney Disease N Ear or Hearing Problems N Thyroid Problems N Skin Problems N Anemia N Constipation N Mental Illness N Diabetes N Bedwetting N Seizures/Epilepsy N Heart Problems/Murmur N Tuberculosis N Diverticulitis N Asthma N Allergies N Reflux/GERD N Heart Disease N Pulmonary Embolism N Hypertension N Chicken Pox Y Autism Spectrum Disorder (ASD) N Osteoporosis N Gynecological History Statement/Question Response Menses Monthly N Date of Last Pap Smear 05/29/2010 Current Control Method Hysterectom y Obstetrics History GPAL:G 0 P 0 0 0 0 Past Encounters Encounter ID Performer Location Encounter Start Date Encounter Closed Date Diagnosis/Indication Diagnosis SNOMED-CT Code Diagnosis ICD10 Code Diagnosis Note [id number] Dorothy Guill[facility] Main [facility] [address] [place] [address] 05/05/2014 11:06:13 05/05/2014 12:00:45 Hypertensive disorder 29127724 Hypothyroidism 62379421 Fatigue 10303902 [id number] Dorothy [facility]ill[facility] [address] [place] [address] 07/17/2014 09:50:27 07/17/2014 11:00:15 Hypothyroidism 08867226 Dietary ma nagement surveillance 965145529 Food intolerance 24560708 [id number] Dorothy [facility]ill[facility] [address] [place] [address] 11/18/2014 15:26:58 11/18/2014 16:14:32 Hypothyroidism 43892926 [id number] Dorothy Guill[facility] [address] [place] [address] 12/03/2014 17:31:19 12/03/2014 18:51:18 Low back pain 174384534 Allergic rhinitis 38675413 Hypothyroidism 98455712 [id number] Quang Parmar MD Main [address] [place] [address] 10/29/2015 13:43:23 10/29/2015 14:44:39 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 E06.3 Fatigue 32565999 R53.83 Hypertensive disorder 38 577178 I10 Cough 02169967 R05 [id number] Quang Parmar MD Main [address] [place] [address] 11/19/2015 16:52:37 11/19/2015 18:25:50 Asthma 900928575 J45.909 Recurrent upper respiratory tract infection 493971626 J06.9 Cough 28407004 R05 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 [id number] Quang Parmar MD Main [address] [place] [address] 12/24/2015 12:03:36 12/24/2015 13:26:07 Hypertensive disorder 40679125 I10 Hypothyroidism 63750826 E03.9 Vitamin D deficiency 347 31085 E55.9 Low back pain 571061748 M54.5 Food intolerance 8144421 0 K90.4 [id number] Quang Parmar MD Main [address] [place] [address] 03/31/2016 12:55:41 03/31/2016 14:30:48 Hypothyroidism 63617474 E03.9 Hypertensive disorder 38 869620 I10 Allergic rhinitis 091553 04 J30.9 Abnormal l iver function 64852332 K76.89 Obesity 844808773 E66.9 Vitamin D deficiency 347 32970 E55.9 Health Concerns Section Related Observation LastModified by Organization Detai ls LastModified Time None Recorded Concern Status LastModified by Organization Details LastModified Time None Recorded Advance Directives Directive None Recorded Payers Insurance Date Sequence Insurance Name Policy Number Policy Benitez Covered Member ID Benitez Member ID Guarantor Name 03/29/2016 1 [facility] [id number] Imani Ortiz [id number] Imani Ortiz Notes Date Note Type Note Provider Name and Address Organization Details Recorded Time 10/29/2015 text/html Since May - has been sick 6 times. June - no strep or flu. Fever - went to the Urgent care - Common cold. Then July again. Then August. Usually feels gets better, but then it returns after a couple of weeks.Que - started getting stuffy, sore throat. Lymph nodes were swollen and painful to touch. Cough present also.When sick - energy level is bad.Seasonal allergies - will use Flonase and then switched to Nicolasa. Was taking Zyrtec before this. In the past had alsoHashimoto's Hypothyroidism. Some wheezing present. Some SOB. Quang Parmar MD [address] [place], [address], [facility] 11/02/2015 20:29:39 11/19/2015 text/html sick again 7th time since May - sore throat - now frequent dry hacking cough then productive. fits.No history of asthma or chronic sinusitis. 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 Quang Parmar MD [address] [place], [address], [facility] 11/19/2015 18:24:47 12/24/2015 text/html Dyazide 37.5/25Nature throid 113.75Better not been sick.Stopped Gluten 2 weeks ago for effect on Silvia. much less arthralgia.Juice plus.Has reduced Advair to once a day without disadvantage - wants to go off - no history of asthma. Quang Parmar MD [address] [place], [address], [facility] 12/24/2015 13:25:47 03/31/2016 text/html Remains off glut en - not too hard. otherwise bad bloating not worth itAsthma much better only rarely used ProAir like once in 3 months.Switched from Zyrtec to Nicolasa. feels like she has recovered well from 10/2015 apparent mononucleosis. Quang Parmar MD [address] [place], [address], [facility] 03/31/2016 14:24:35 OBGyn Episode No OBEpisode recorded.
--- OUTSIDE RECORDS SUMMARY | 2024-11-07 04:38 | XMS_ITS | Data Portability ---
Author Organization [place] - [facility], Main Office Address [address] [place] [address] Assessment Encounter Date Assessment Date Assessment LastModified by Organization Details LastModified Time 01/04/2024 01/04/2024 Time spent with patient included: preparing to see patient by reviewing tests, obtaining and reviewing history, medical examination and evaluation, counseling and educating the patient, ordering medications and tests, documenting clinical information in EHR, independently interpreting results and communicating results to the patient for a total of 35 minutes. [email or web address] Not available 01/04/2024 14:36:26 Plan of Treatment Reminders Order Date Submit Date Provider Last Modified By Organization Details Last Modified Time Details Appointments None record ed. Lab None record ed. Referral None record ed. Procedures None record ed. Surgeries None record ed. Imaging None record ed. Medication Orders None record ed. Patient TargetsNo targets recorded. Patient InstructionsNo instructions recorded. Reason for Referral None Reported. Results Created Date Observation Date Name Description Value Unit Range Abnormal Flag Note LastModifiedBy Organization Detail LastModifiedTime 06/15/1901/18/2021 sleep study , diagn ostic (PROC ) No observ ation record ed. [id number] Not Available 07/27/2022 07:36:21 07/23/19 25 11/05/2018 home sleep study No observ ation record ed. BARCODE Not Available 2024 11:46:11 Result Notes None recorded. Problems Name Problem SNOMED Code Status Onset Date Resolution Date Notes Provider Name and Address Organization Details Recorded Time Hyperthyro idism with Silvia disease 87376166 Active 2017 Not Available [facility] 3 07:31:32 Hypertensi ve disorder 37170481 Active 2017 Not Available [facility] 3 07:31:32 Body mass index 40+ - severely obese 535716515 Active 2019 Not Available [facility] 3 07:31:32 Hypothyroi dism 29109044 Completed 201705/08/2018 Not Available [facility] 3 07:31:32 Obstructiv e sleep apnea syndrome 03583112 Active 2018 Not Available [facility] 3 07:31:32 Problem Notes None recorded. Medical Equipment None Reported. Allergies Allergen ID Allergen Name Allergen Category Reaction Reaction Severity Criticality Documentation Date Start Date Code Code System Note Provider Name and Address Organization Details Recorded Time 92824 doxycycli ne Not available hives Not available Not available 07/27/2022 3640 RxNorm Not Available [facility] 3 07:36:14 Medications Name Sig Start Date Stop Date Status Note LastModified by Organization Details LastModified Time mesalamine 4 gram/60 mL enema INSERT 4 GRAMS (60ML) RECTALLY EVERY DAY AT BEDTIME FOR 8 WEEKS. active Not Available Not Available No t Available [facility] Thyroid 90 mg tablet 06/19 completed Not Available Not Available Not Available azithromyci n 250 mg tablet 12/02 completed Not Available Not Available Not Available Zyrtec 10 mg tablet Take 1 tablet every day by oral route. 2018 active Not Available Not Available Not Avai lable metronidazo le 500 mg tablet TAKE 1 TABLET BY MOUTH EVERY 8 HOURS FOR 5 DAYS active Not Available Not Available No t Available chlorthalid one 25 mg tablet Take 1 tablet every day by oral route in the morning for 30 days. 12/02 completed Not Available Not Available Not Available amlodipine 5 mg tablet 12/02 completed Not Available Not Available Not Available omeprazole 40 mg capsule,del ayed release TAKE 1 CAPSULE BY MOUTH ONCE DAILY active Not Available Not Available No t Available spironolact one 25 mg tablet 12/02 completed Not Available Not Available Not Available ondansetron 8 mg disintegrat ing tablet DISSOLVE 1 TABLET IN MOUTH EVERY 8 HOURS NEEDED FOR NAUSEA AND VOMITING active Not Available Not Available No t Available levothyroxi ne 100 mcg tablet TAKE 1 TABLET BY MOUTH DAILY active Not Available Not Available No t Available lorazepam 0.5 mg tablet TAKE 1 TABLET BY MOUTH TWICE DAILY NEEDED FOR ANXIETY active Not Available Not Available No t Available benzonatate 100 mg capsule 05/08 completed Not Available Not Available Not Available hydrocodone 7.5 mg-acetamin ophen 325 mg tablet TAKE 1 TABLET BY MOUTH EVERY 6 HOURS NEEDED FOR PAIN active Not Available Not Available No t Available clotrimazol e-betametha sone 1 %-0.05 % topical cream 06/19 completed Not Available Not Available Not Available triamterene 37.5 mg-hydrochl orothiazide 25 mg tablet active Not Available Not Available Not Available omeprazole 20 mg capsule,del ayed release TAKE 1 CAPSULE BY MOUTH ONCE DAILY active Not Available Not Available No t Available [place] Thyroid 30 mg tablet 05/08 completed Not Available Not Available Not Available metoprolol succinate ER 25 mg tablet,exte nded release 24 hr Take 1 tablet every day by oral route in the morning for 30 days. 12/02 completed Not Available Not Available Not Available levofloxaci n 500 mg tablet 05/08 completed Not Available Not Available Not Available albuterol sulfate HFA 90 mcg/actuati on aerosol inhaler active Not Available Not Available Not Available celecoxib 100 mg capsule active Not Available Not Available Not Available doxycycline hyclate 100 mg tablet 05/08 completed Not Available Not Available Not Available Low Dose Aspirin 81 mg tablet,ruth ann yed release Take 1 tablet every day by oral route. 2018 active Not Available Not Available Not Avai lable nitrofurant oin monohydrate /macrocryst als 100 mg capsule TAKE 1 CAPSULE BY MOUTH EVERY 12 HOURS FOR 5 DAYS WITH MEALS OR FOOD active Not Available Not Available No t Available duloxetine 20 mg capsule,del ayed release TAKE 1 CAPSULE BY MOUTH TWICE DAILY active Not Available Not Available No t Available duloxetine 30 mg capsule,del ayed release TK 1 C PO D active Not Available Not Available No t Available duloxetine 60 mg capsule,del ayed release active Not Available Not Available Not Available Co Q-10 2018 active Not Available Not Available Not Avai lable mesalamine 1.2 gram tablet,ruth ann yed release TAKE 4 TABLETS (4.8 G) BY MOUTH DAILY active Not Available Not Available No t Available Align (B.infantis ) 2018 active Not Available Not Available Not Avai lable GaviLyte-G 236 gram-22.74 gram-6.74 gram-5.86 gram oral solution active Not Available Not Available Not Available Tirosint 125 mcg capsule TK 1 C PO QD IN THE MORNING 11/09 completed Not Available Not Available Not Available Tirosint 100 mcg capsule Take 1 capsule every day by oral route in the morning for 30 days. 11/09 completed Not Available Not Available Not Available Vitamin D3 125 mcg (5,000 unit) tablet Take by oral route. 2018 active Not Available Not Available Not Avai lable Afluria Quad 5357-8405 (PF) 60 mcg (15 mcg x 4)/0.5 mL IM syringe ADM 0.5ML IM UTD active Not Available Not Available No t Available Paxlovid 300 mg (150 mg x 2)-100 mg tablets in a dose pack TAKE 3 TABLETS TOGETHER (TWO 150 MG NIRMATREL VIR TABLETS AND ONE 100 MG RITONAVIR TABLET) BY MOUTH TWICE DAILY FOR 5 DAYS. active Not Available Not Available No t Available Vitals Date Recorded Body weight Body mass index (BMI) Body height Heart rate Oxygen saturation Oxygen saturation in Arterial blood by Pulse oximetry Body temperature Systolic blood pressure Diastolic blood pressure Provider Name and Address Organization Details Last Updated DateTime 4 632010. 2 g 45 kg/m2 162.56 cm 62 /min 98 % 98 % 97.9 [degF] 128 mm[Hg] 70 mm[Hg] Fatoumata Barahona CMA [place] - S [facility] 4 14:08:18 Date Recorded Body mass index (BMI) Body height Oxygen saturation Oxygen saturation in Arterial blood by Pulse oximetry Heart rate Body temperature Body weight Systolic blood pressure Diastolic blood pressure Provider Name and Address Organization Details Last Updated DateTime 1 43.6 kg/m2 162.56 cm 96 % 96 % 72 /min 97.6 [degF] 641353. 46 g 130 mm[Hg] 80 mm[Hg] Not Available [facility] 3 07:30:22 Social History None recorded. Functional Status None recorded. Mental Status None recorded. Family History Nothing Reported. Medical History No medical history recorded. Gynecological HistoryNo gynecological history recorded. Obstetrics History GPAL:G 0 P 0 0 0 0 Past Encounters Encounter ID Performer Location Encounter Start Date Encounter Closed Date Diagnosis/Indication Diagnosis SNOMED-CT Code Diagnosis ICD10 Code Diagnosis Note [id number] [facility] [place] [address] [place] [address] 01/19/2021 00:00:00 01/19/2021 10:46:41 [id number] Lisa BanMARY maher [facility] [place] [address] [facility] [address] [place] [address] 01/04/2024 13:49:44 01/05/2024 08:48:47 Obstructive sleep apnea syndrome 40024720 G47.33 obstructiv e sleep apnea syndromeHo hi sleep study 2019 with AHI 0.8Machine set up 03/14/19-w ill place order for new machine with same settingsSh e was not titrated in lab, rather placed on APAP.Setti ngs remain 6-18 cm H2O.Downlo ad with 100% use greater than 4 hours.Medi an pressure 7.7, max pressure 11.9AHI 0.8She has good use and benefit.OS A is well correctedE ncouraged 100% compliance with all sleepFollo w with PCM for labs Advised good sleep habits and patterns:- Set a goal for at least 7 to 8 hours of sleep time per day.-Use the bed mainly for sleep and to go to bed only when tired. If unable to fall asleep after 30 minutes, she should get out of bed but should not engage in any activity that requires sustained mental alertness. -Maintain a regular bedtime and wake-up time even on weekends or days off of work.-Avoi d excessive naps during the daytime. If a nap is necessary, limit it to no more than 30minutes. -Minimize environmen hipolito noise, bright lights, and extremes in bedroom temperatur e.-Avoid alcohol, caffeinate d beverages, and nicotine products for at least 6 hours prior to bedtime.-A void strenuous exercise and large meals for at least 4 hours prior to bedtime.Ad vised not to use ION vacuum cleaner repairer, but manually clean once weekly with hot water and soap.Discu ssed reportable signs and symptoms.R TC in one year, PRN for concerns. Body mass index 40+ - severely obese 131581998 Z68.42 Encourage healthy diet and exercise to improve weightdisc ussed weight effect on sleep and sleep apnea Health Concerns Section Related Observation LastModified by Organization Detai ls LastModified Time None Recorded Concern Status LastModified by Organization Details LastModified Time None Recorded Advance Directives Directive None Recorded Payers Insurance Date Sequence Insurance Name Policy Number Policy Benitez Covered Member ID Benitez Member ID Guarantor Name 01/03/2024 1 [facility] [id number] Imani Ortiz [id number] Imani Ortiz Notes Date Note Type Note Provider Name and Address Organization Details Recorded Time 01/04/2024 text/html CPAP F/UReported bypatient.CPAPDavid grayson is using CPAP and estimates 8 hours of PAP use nightly.; No problems with CPAP; mask does not leak; no trouble with sleep initiation; no problems with sleep maintenance; does not remove CPAP mask during the night; does not wake up in the middle of the night with dry mouth; no aerophagia; no abdominal discomfort; no skin irritation; no ear pain; no ear pressure; no nasal congestion; sleep related symptoms have markedly improved; wakes up rested; no excessive daytime sleepiness; no headache; no memory loss;snoring through the maskNotes:does note that strap at back of head does sit wrong and she tries to move it but it messes with mask-she notes machine is around 5 years old-machine obtained February of 2019-otherwise does well with machine and feeling rested-much jaylen than in the past.ESS-11 Lisa Ruiz NP [address] [facility], [facility] [address], [place], [address], [facility] 01/04/2024 14:38:17 OBGyn Episode No OBEpisode recorded.
--- OUTSIDE RECORDS SUMMARY | 2024-11-07 04:38 | XMS_ITS | Clinical Summary ---
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 Gender Identity Not on file Sexual Orientation Not on file Plan of Treatment Health Maintenance Due Date Last Done Comments Hepatitis C Virus (HCV) Screening 1970 TdaP Immunization 1970 Hepatitis B Immunization (1 of 3 - 19+ 3-dose series) 1988 Pap Smear 1990 Cervical Cancer Screening (CCS) 10/21/1999 HPV/Cotest 10/21/1999 Colonoscopy 2014 Colorectal Cancer Screening 2014 Cologuard 10/21/2019 Immunochemical Fecal Occult Blood 10/21/2019 Mammogram 10/21/2019 Pneumococcal Immunization (5 0+ years) (1 of 1 - PCV) 10/21/2019 Zoster Immunization (1 of 2) 10/21/2019 Influenza Immunization (#1) 2024 04/12/2018 SARS-COV-2 Immunization ( - season) 2024 Respiratory Syncytial Virus (RSV) Immunization (Adult) (1 - 1-dose 75+ series) 2044 Meningococcal Immunization (ACWY) Aged Out No longer eligible based on patient's age to complete this topic Pneumococcal Immunization Combined Aged Out No longer eligible based on patient's age to complete this topic Rotavirus Immunization Aged Out No lo nger eligible based on patient's age to complete this topic
--- OUTSIDE RECORDS SUMMARY | 2024-11-07 04:38 | XMS_ITS ---
Author Organization [facility] [place] ([address]) Address [address] [place] [address] Care Team Providers Care International Marketing Specialist Name Role Phone Ciera Frye DO Primary Care Provider Unav ailable Leigha Munguia Unavailable [phone] REASON FOR VISIT ARC follow-up Encounters Encounter Location Date Provider Diagnosis [facility] [address] [place] [address] 10/03/2023 Leigha Munguia Plan Of Treatment No Information Progress Notes * Imani ESPINAL MDOB:1970 ([age] yo F)Acc No.[id number]:10/03/2023 Progress Notes Patient: Imani GILLESPIE Afua Provider: Ken Munguia MD :1970 A ge:52 Y S ex:Female Date:10/03/2023 Address:[facility] Pcp:Ciera Frye DO Subjective: * Chief Complaints: * 1 . ARC follow-up. * Medical History: Objective: * Vitals: Assessment: Plan: * Treatment: * Billing Information: * Visit Code: * Procedure Codes: * Electronic signature of Jennifer Munguia MD on 11/07/2024 at 04:37 AM CDT Sign off status: Pending * Provider: Kne Munguia MD Date: 0 10/03/2023 Generated for Jeremy york/Zheng/Levismitting on: 0 11/07/2024 04:37 AM CDT
--- OUTSIDE RECORDS SUMMARY | 2024-11-07 04:38 | XMS_ITS | Patient Health Record ---
Author Organization [facility] [employer] [place] ([address]) Address [address] [place] [address] Care Team Providers Care Tank Wagon Operator Name Role Phone Ciera Frye DO Primary Care Provider Leigha Castaneda Unavailable [phone] [facility], Provider Unavailable Unavailab le Allergies Allergen (clinical drug ingredient) Drug/Non Drug Allergy documented on EMR Reaction Allergy Type Onset Date Status doxycycline Doxycycline rash Drug Allergy Act jean marie Reason For Referral No Information Medications Medication SIG (Take, Route, Frequency, Duration) Notes Start Date End Date Status ZyrTEC Allergy 10 MG 1 tab(s) orally once a day Active SIT (TRADITIONAL) VARIABLE PER SCHEDULE SC PER SCHEDULE for TO BE DETERMINED *Please review for potential replacement for e-prescription and drug interaction check* Active PROAIR HFA 90 MCG/INH 2 PUFF(S) INHALED 4 TIMES A DAY *Please review for potential replacement for e-prescription and drug interaction check* Active PAZEO 0.7% 1 GTT IN EACH AFFECT ED EYE ONCE A DAY *Please review for potential replacement for e-prescription and drug interaction check* Active Fluticasone Propionate 50 MCG/ACT 1 spray(s) intranasally once a day for 30 day(s) Active FLUTICASONE PROPIONATE 50 mcg/inh 1 spray(s) intranasally once a day for 30 day(s) Active ZYRTEC 10 mg 1 tab(s) orally once a day Active AUVI-Q 0.3 mg 0.3 mg intramuscular ly once for 1 day Active Auvi-Q 0.3 MG/0.3ML 0.3 mg intramuscularly once for 1 day Active SIT (TRADITIONAL) VARIABLE PER SCHEDULE SC PER SCHEDULE for TO BE DETERMINED *Please review for potential replacement for e-prescription and drug interaction check* Active Immunizations Vaccine Route Administration Date Status Comme nts Flucelvax Unknown 02/26/2019 Administered NOC Fluzone Quadrivalent Unknown 08/28/2018 Refused NOC Tdap Unknown 05/29/1994 Administered Portal César ramirez Social History Tobacco Use: Social History Observation Description Date Details (start date - stop date) Former Smoker 05/29/1985 - NA Smoking Smart Form: Question Answer Notes Are you a: former smoker Are you a: former smoker When did you start smoking? 05/29/1985 When did you start smoking? 05/29/1985 How long it has been since you last smoked? > 10 years How long it has been since you last smoked? > 10 years Additional Findings:Tobacco Non-User Current non -smoker Additional Findings:Tobacco Non-User Current non -smoker Problems Problem Type SNOMED Code ICD Code Onset Dates Problem Status W/U Status Risk Notes Problem Chronic allergic conjunctivitis (31326753) Other chronic allergic conjunctivitis (H10.45) Active confirmed Problem Allergic rhinitis caused by pollen (disorder) (03829620) Allergic rhinitis due to pollen (J30.1) Active confirmed Problem Allergic rhinitis caused by animal hair and dander (819059252226012) Allergic rhinitis due to animal (cat) (dog) hair and dander (J30.81) Active confirmed Problem Allergic rhinitis (57747030) Other allergic rhinitis (J30.89) Active confirmed Problem Cough (97648346) Cough (R05) Active confirmed Problem Allergic rhinitis caused by pollen (disorder) (58803955) Allergic rhinitis due to pollen (J30.1) Active confirmed Problem Allergic rhinitis caused by animal hair and dander (828413063422531) Allergic rhinitis due to animal (cat) (dog) hair and dander (J30.81) Active confirmed Problem Allergic rhinitis (28623512) Other allergic rhinitis (J30.89) Active confirmed Problem Chronic allergic conjunctivitis (76163666) Other chronic allergic conjunctivitis (H10.45) Active confirmed Problem Chronic cough (29722874) Chronic cough (R05.3) Active confirmed Encounters Encounter Location Date Provider Diagnosis [facility] [place] [address] [place] [address] [place] [address] 11/11/2023 Provider [facility] Allergic rhinitis due to pollen J30.1 Assessments Encounter Date Diagnosis (ICD Code) Assessment Notes Treatment Notes Treatment Clinical Notes Section Notes 11/11/2023 Allergic rhinitis due to pollen (ICD-10 - J30.1) Plan Of Treatment No Information Insurance Providers Payer Name Payer Address Payer Phone Subscriber Number Group Number Insured Name Patient Relationship to Insured Coverage Start Date Coverage End Date [facility] [address] [place] [address] [id number] Mahi Ortiz Self - patient is the insured 4 Medical (General) History Medical History History ICD Code Hypothyroidism, unspecified Autoimmune thyroiditis Allergic rhinitis due to pollen J30.1 Surgical History Surgery Date(Month/Year) Cholecystectomy 05/29/2007 Broken thumb surgery 05/29/2005 Hysterectomy 09/11/2012
--- OUTSIDE RECORDS SUMMARY | 2024-11-07 04:38 | XMS_ITS ---
Author Organization [facility] [employer] [employer] [place] ([address]) Address [address] [place] [address] Care Team Providers Care Area Loss Prevention Manager Name Role Phone Ciera Frye DO Primary Care Provider Unav koltonLeigha Lance Unavailable [phone] [facility], Provider Unavailable Unavailab le Allergies Allergen (clinical drug ingredient) Drug/Non Drug Allergy documented on EMR Reaction Allergy Type Onset Date Status doxycycline Doxycycline rash Drug Allergy Act jean marie REASON FOR VISIT [facility] Conversion Encounter Medications Medication SIG (Take, Route, [...] once a day for 30 day(s) Active Encounters Encounter Location Date Provider Diagnosis [address] [address] 11/11/2023 Provider Bryan Allergic rhinitis due to [...] Imani ESPINAL MDOB:1970 ([age] yo F)Acc No.[id number]:11/11/2023 Patient: Jamal MICHAELImani Afua Provider: Roro Waddell :1970 A ge:53 Y S ex:Female Date:11/11/2023 Address:[address] [place], [place] [address] [facility] Pcp:Ciera Frye, DO Subjective: * Chief Complaints: * 1 [...] Electronic signature of Prov ider [facility] on 11/07/2024 at 04:38 AM CDT Sign off status: Pending * Provider: Roro martinez Migration Date: 0 11/11/2023 Generated for Jeremy york/Zheng/Rudy on: 0 11/07/2024 04:38 AM CDT
[2024-11-07 09:23] VITALS: BP 134/91; PULSE 68; RESP 20; TEMP 36.3; O2SAT 95
[2024-11-07] MEDS: LACTATED RINGERS 1,000 ML 150 ML IV CONT (09:34)
--- NOTE | 2024-11-07 10:31 | P.PNAN_ITS ---
Anes - Initial Pre Proc Eval Procedure: Operation Date: 11/07/24 10:30 Proposed Procedures p Esophagogastroduodenoscopy & Colonoscopy - Zachery Dumont MD Date/Time: 11/07/24 10:31 Surgeon: Zachery Dumont MD Pre Op Diagnosis: Gastro-esophageal reflux disease without esophagit Patient Data Age: 54 Gender: F Height: 1.63 m Weight: 111.6 kg Last Vital Signs Temp 97.3 F L 11/07/24 09:23 Pulse 68 11/07/24 09:23 Resp 20 11/07/24 09:23 BP 134/91 H 11/07/24 09:23 Pulse Ox 95 11/07/24 09:23 O2 Del Method Room Air 11/07/24 09:23 Allergies Allergy/AdvReac Type Severity Reaction Status Date / Time levofloxacin Allergy Severe Joint Pain Verified 11/07/24 09:21 clotrimazole Allergy Unknown Unknown Verified 11/07/24 09:21 doxycycline Allergy Unknown Hives Verified 11/07/24 09:21 Home Medications ?Medication ?Instructions ?Recorded ?Confirmed ?Type aspirin 81 mg tablet,delayed 81 mg PO DAILY 06/04/19 11/07/24 History release (Adult Low Dose Aspirin) cetirizine 10 mg tablet (Zyrtec) 10 mg PO DAILY 06/04/19 11/07/24 History cholecalciferol (vitamin D3) 125 125 mcg PO DAILY 06/04/19 11/07/24 History mcg (5,000 unit) capsule coenzyme Q10 200 mg capsule (Co 200 mg PO DAILY 06/04/19 11/07/24 History Q-10) lorazepam 0.5 mg tablet (Ativan) 0.5 mg PO BID PRN anxiety #30 tabs 08/24/23 11/05/24 Rx albuterol sulfate 90 mcg/actuation 2 puff inhalation Q4H PRN 01/03/24 11/05/24 Rx aerosol inhaler (Ventolin HFA) shortness of breath or wheezing #6.7 grams mesalamine 1.2 gram tablet,delayed 4.8 g (4 x 1.2 gram) PO DAILY 90 04/30/24 11/07/24 Rx release (Lialda) days #360 tabs dextroamphetamine-amphetamine 5 mg 5 mg PO BID #60 tabs 02/13/25 06/12/25 Rx tablet levothyroxine 100 mcg tablet See Rx Instructions .Route 08/12/24 11/07/24 Rx .COMPLEX #90 tabs triamterene 37.5 See Rx Instructions .Route 10/07/24 11/07/24 Rx mg-hydrochlorothiazide 25 mg tablet .COMPLEX #90 tabs duloxetine 20 mg capsule,delayed 60 mg PO BID 10/31/24 11/07/24 History release mesalamine rectal susp enema with 4 g (60 mL) RECTAL QHS 8 weeks #30 10/31/24 11/07/24 Rx cleansing wipes 4 gram/60 mL kit ea (Rowasa rectal suspension enema) omeprazole 40 mg capsule,delayed 40 mg PO DAILY #90 caps 10/31/24 11/07/24 Rx release Patient hx anesthesia problems: none Family hx anesthesia problems: none Results Review: All pre-operative results and documents have been reviewed as part of the pre- operative evaluation. [facility] Past Medical History Medical History Degenerative arthritis of left knee Chondromalacia, left knee Acute medial meniscus tear of left knee Colitis Perimenopausal Diverticulosis Change in bowel habit LLQ abdominal pain Epigastric burning sensation Chronic nausea Belching symptom GERD (gastroesophageal reflux disease) Right knee DJD Panic attack Pain in left lower leg Abnormal urinalysis Dysuria Insomnia Obesity Hyperlipemia Prediabetes Fibromyalgia Hyperglycemia Fatigue Lumbar back pain Vitamin D deficiency Palpitations Hypothyroid B12 deficiency Abdominal pain Colon cancer screening MANCIA (dyspnea on exertion) Essential hypertension Family history of diabetes mellitus Chronic fatigue, unspecified Obstructive sleep apnea Surgical History Surgical History H/O thumb surgery History of cholecystectomy History of hysterectomy (08/11/11) Robotic-assisted total hysterectomy Family History Family History Mother Family history of thyroid disease Grandparent Family history of thyroid disease Family history of cardiovascular disease Family history of lung cancer Father Diabetes mellitus Family history of cardiovascular disease Family history of congestive heart failure Unknown Asthma Hypertension Heart disease Arthritis Hyperlipidemia Social History Social History (Reviewed 10/31/24 @ 09:28 by NAOMIE Gracia Smoking status: Never smoker Second hand tobacco smoke exposure: No Smoking end date: 05/29/96 Alcohol intake: current Drinks per week: 2 Substance use: never Substance use type: does not use Do You Feel Safe in your Home?: Yes Lack of Transportation: No Lack of Food: Never True Current Housing: I Have Housing Concerned About Future Housing: No Difficulty Paying Gas/Electric Bills: No Difficulty Paying for Meds: No Currently Unemployed: No Education: Master's Degree or Higher Difficulty w/ Childcare or Family Care: No Living arrangements: with family Additional living arrangements comments: same sex partner Occupation/Education: occupation 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 Gender identity (if verbalized by the patient): Female Sexual Orientation (if Verbalized by the Patient): Lesbian, Maynard, or Homosexual Spiritual care concerns: No Agree to blood products: Yes Anes - Eval Final PreProcedure Day of Procedure 11/07/24 10:31 Patient weight: morbidly obese Heart: regular rate and rhythm Lungs: clear to auscultation Airway: Mallampati scale class II Neurological: alert and oriented Last oral intake: >/= 8 hours ASA classification: III Emergent: no Anesthetic plan: proceed Anesthesia type and monitoring: general GIVS and standard monitoring Results Review: All pre-operative results and documents have been reviewed as part of the pre- operative evaluation. Informed Consent: The patient's anesthetic plan and its attendant risks and benefits were discussed with the patient/family/POA. Questions were solicited and answers provided to the satisfaction of the patient/family/POA.
--- NOTE | 2024-11-07 10:42 | WPDHPUPDATE1 ---
History and Physical Update Update Date/Time: 11/07/24 10:42 History and Physical has been reviewed, including an updated exam of the patient. There are NO changes in the patient's condition. Risks, benefits, and alternatives have been discussed and questions answered. Patient agrees to proceed with procedure.
[2024-11-07] MEDS: BENZOCAINE (*SP) 60 ML SPRAY CAN (HURRICAINE) 1 SPRAY MUCOUS MEM (10:48)
--- NOTE | 2024-11-07 10:58 | SUR.OPER ---
EGD END 105 COLONOSCOPY START 105
--- NOTE | 2024-11-07 11:03 | S_PTH ---
PATIENT: Imani Ortiz LOC: RE Dias#:[id number] AGE/SX: 54/F ROOM: RE11/07/[address]: Zachery Dumont MD : 1970 BED: DIS: 11/07/2024 SPEC #: [id number] RECD: 11/07/24 12:04 STATUS: DIEGO REDipti #: [id number] DENICE: 11/07/24 11:[address]: Zachery Dumont DEPT: [facility] Surgical RECD BY: Daysi Patton ENTERED: 11/07/24 12:05 SP TYPE: Surgical OTHR DR: Sabina Sinha DO Tissues: A - Gastric Biopsy B - Colon Biopsy C - Colon Biopsy D - Colon Biopsy Procedures: Hematoxylin and Eosin Stain Gross and Microscopic Level 4
[2024-11-07 11:10] VITALS: BP 138/76; PULSE 64; RESP 22; O2SAT 100
[2024-11-07 11:20] VITALS: BP 135/86; PULSE 58; RESP 18; O2SAT 100
[2024-11-07 11:30] VITALS: BP 125/85; PULSE 56; RESP 18; O2SAT 100
== END 2024-11-07 11:35 | disposition home or self-care (01) ==
PROVIDERS: Absent Provider Nurse Practitioner; PCP Family Medicine; Visit Provider Internal Medicine Gastroenterology
PROC: 0DJ08ZZ Inspection of Upper Intestinal Tract, Via Natural or Artificial Opening Endoscopic (ICD-10-PCS; CPT 45378; principal; 2024-11-07 10:30)
DX: K52.9 Noninfective gastroenteritis and colitis, unspecified (principal); K57.30 Diverticulosis of large intestine without perforation or abscess without bleeding; R11.0 Nausea; E66.01 Morbid (severe) obesity due to excess calories; Z68.41 Body mass index [BMI] 40.0-44.9, adult
CPT/HCPCS: 45380; 43239; 88305; J2003; J2704; J7120

== ENCOUNTER 2025-04-09 08:40 | Outpatient (CLI) | payer OTHER, SELFPAY ==
--- OUTSIDE RECORDS SUMMARY | 2023-11-11 15:30 | XMS_ITS ---
Author Organization [facility] [employer] [place] ([address]) Address [address] [place] [address] Care Team Providers Care Intensive Care Unit Registered Nurse Name Role Phone Ciera Frye DO Primary Care Provider Unav Leigha Poole Unavailable [phone] [employer], Provider Unavailable Unavailab le Allergies Allergen (clinical drug ingredient) Drug/Non Drug Allergy documented on EMR Reaction Allergy Type Onset Date Status doxycycline Doxycycline rash Drug Allergy Act jean marie REASON FOR VISIT [facility] To [facility] Conversion Encounter Medications Medication SIG (Take, Route, Frequency, Duration) Notes Start Date End Date Status SIT (TRADITIONAL) VARIABLE PER SCHEDULE SC PER SCHEDULE; Duration: TO BE DETERMINED *Please review for potential replacement for e-prescription and drug interaction check* Active PROAIR HFA 90 MCG/INH 2 PUFF(S) INHALED 4 TIMES A DAY *Please review for potential replacement for e-prescription and drug interaction check* Active PAZEO 0.7% 1 GTT IN EACH AFFECT ED EYE ONCE A DAY *Please review for potential replacement for e-prescription and drug interaction check* Active Auvi-Q 0.3 MG/0.3ML 0.3 mg intramuscularly once; Duration: 1 day Active SIT (TRADITIONAL) VARIABLE PER SCHEDULE SC PER SCHEDULE; Duration: TO BE DETERMINED *Please review for potential replacement for e-prescription and drug interaction check* Active ZyrTEC Allergy 10 MG 1 tab(s) orally once a day Active Fluticasone Propionate 50 MCG/ACT 1 spray(s) intranasally once a day; Duration: 30 day(s) Active Encounters Encounter Location Date Provider Diagnosis [facility] [place] [phone] 11/11/2023 Provider Bryan Allergic rhinitis due to pollen J30.1 Assessments Encounter Date Diagnosis (ICD Code) Assessment Notes Treatment Notes Treatment Clinical Notes Section Notes 11/11/2023 Allergic rhinitis due to pollen (ICD-10 - J30.1) Plan Of Treatment Medication Medication Name Sig Start Date Stop Date Notes SIT (TRADITIONAL) VARIABLE PER SCHEDULE SC PER SCHEDULE; Duration: TO BE DETERMINED *Please review for potential replacement for e-prescription and drug interaction check* Progress Notes * Imani ESPINAL MDOB:1970 ([age] yo F)Acc No.[id number]:11/11/2023 Patient: Imani GILLESPIE Provider: Roro Waddell :1970 A ge:53 Y S ex:Female Date:11/11/2023 Address:[address] [place], [place] [id number] Pcp:Ciera Frye, Subjective: * Chief Complaints: * 1 . Multum To Medispan Conversion Encounter. * Medical History: * Medications: T aking PROAIR HFA 90 MCG/INH AEROSOL 2 PUFF(S) INHALED 4 TIMES A DAY , Notes to Pharmacist: *Please review for potential replacement for e-prescription and drug interaction check*, Taking PAZEO 0.7% SOLUTION 1 GTT IN EACH AFFECTED EYE ONCE A DAY , Notes to Pharmacist: *Please review for potential replacement for e- prescription and drug interaction check*, Taking Fluticasone Propionate 50 MCG/ACT Suspension 1 spray(s) intranasally once a day , Taking ZyrTEC Allergy 10 MG Tablet 1 tab(s) orally once a day , Taking Auvi-Q 0.3 MG/0.3ML Solution Auto-injector 0.3 mg intramuscularly once , Taking SIT (TRADITIONAL) VARIABLE SEE RECORD PER SCHEDULE SC PER SCHEDULE , Notes to Pharmacist: *Please review for potential replacement for e-prescription and drug interaction check* * Allergies: D oxycycline: rash. Objective: * Vitals: Assessment: * Assessment: 1. A llergic rhinitis due to pollen - J30.1 (Primary) Plan: * Treatment: * Billing Information: * Visit Code: * Procedure Codes: * Electronic signature of Prov ider [employer]Migration on 04/09/2025 at 09:00 AM HOT OILER Sign off status: Pending * Provider: Roro martinez Migration Date: 0 11/11/2023 Generated for Jeremy york/Zheng/Rudy on: 1 06/09/2024 09:00 AM HOT OILER
--- NOTE | ~2025-04-09 | MM_ITS ---
EXAMINATION: MM screening triston BI w julio cesar HISTORY: Screening TECHNIQUE: Craniocaudal and mediolateral oblique 3-D tomosynthesis images were obtained and synthetic 2-D images were generated. CAD analysis was submitted and interpreted. COMPARISON: Comparison to multiple prior studies sequentially, with oldest reviewed study dated 04/25/2018. BREAST PARENCHYMAL COMPOSITION: Not dense: There are scattered areas of fibroglandular density. FINDINGS: There is no evidence of suspicious mass, calcification, or architectural distortion to suggest malignancy in either breast. There has been no suspicious interval change. IMPRESSION: 1. No mammographic evidence of malignancy. 2. Recommend routine screening mammography in one year. BI-RADS Category 1: Negative Reviewed, dictated and finalized at location B. H HAND
--- OUTSIDE RECORDS SUMMARY | 2025-04-09 09:00 | XMS_ITS | Patient Health Record ---
Author Organization [facility] [employer] [facility] ([address]) Address [address] [place] [address] Care Team Providers Care Bag Sewer Name Role Phone Ciera Frye DO Primary Care Provider Leigha Castaneda Unavailable [phone] Allergies Allergen (clinical drug ingredient) Drug/Non Drug [...] once a day; Duration: 30 day(s) Active FLUTICASONE PROPIONATE 50 mcg/inh 1 spray(s) intranasally once a day; Duration: 30 day(s) Active ZYRTEC 10 mg 1 tab(s) orally once a day Active AUVI-Q 0.3 mg 0.3 mg intramuscular ly once; Duration: 1 day Active Auvi-Q 0.3 MG/0.3ML 0.3 mg intramuscularly once; Duration: 1 day Active SIT (TRADITIONAL) VARIABLE PER SCHEDULE SC PER SCHEDULE; Duration: TO BE DETERMINED *Please review for potential replacement for e-prescription and drug interaction check* Active Immunizations Vaccine Route Administration Date Status Comme nts ANANT Tdap Unknown 05/29/1994 Administered Portal [place] Fluzone Quadrivalent Unknown 08/28/2018 Refused Flucelvax Unknown 02/26/2019 Administered Social History Tobacco Use: Social History Observation [...] Status Risk Notes Problem Chronic allergic conjunctivitis (13570086) Other chronic allergic conjunctivitis (H10.45) Active confirmed Problem Allergic rhinitis caused by pollen (disorder) (04319774) Allergic rhinitis due to pollen (J30.1) Active confirmed Problem Allergic rhinitis caused by animal hair and dander (376791962172597) Allergic rhinitis due to animal (cat) (dog) hair and dander (J30.81) Active confirmed Problem Allergic rhinitis (96842889) Other allergic rhinitis (J30.89) Active confirmed Problem Cough (90074391) Cough (R05) Active confirmed Problem Allergic rhinitis caused by pollen (disorder) (38984967) Allergic rhinitis due to pollen (J30.1) Active confirmed Problem Allergic rhinitis caused by animal hair and dander (425344071266582) Allergic rhinitis due to animal (cat) (dog) hair and dander (J30.81) Active confirmed Problem Allergic rhinitis (59408420) Other allergic rhinitis (J30.89) Active confirmed Problem Chronic allergic conjunctivitis (02941869) Other chronic allergic conjunctivitis (H10.45) Active confirmed Problem Chronic cough (39139036) Chronic cough (R05.3) Active confirmed Plan Of Treatment No Information Insurance Providers Payer Name Payer Address Payer Phone Subscriber Number Group Number Insured Name Patient Relationship to Insured Coverage Start Date Coverage End Date [facility] [address] [address] [place] [address] [id number] Mahi Ortiz Self - patient is the insured 4 Medical (General) History Medical History History ICD Code Hypothyroidism, unspecified Autoimmune thyroiditis Allergic rhinitis due to pollen J30.1 Surgical History Surgery Date(Month/Year) Cholecystectomy 05/29/2007 Broken thumb surgery 05/29/2005 Hysterectomy 09/11/2012
--- OUTSIDE RECORDS SUMMARY | 2025-04-09 09:00 | XMS_ITS | Clinical Summary ---
Author Organization [facility] Address [address] [place] [address] Care Team Providers Care Data Processing Equipment Repairer Name Role Phone Rhianna Fryefer Primary Care Provider Source Comments [facility],non-owned Affiliates and Associated Physician Practices is amultiple site organization consisting of ambulatory clinics and hospital sitesin [place], [place], [place] and [place]. This disclosure is being madepursuant to the Care Everywhere program and may not contain all information available regarding this patient. 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 Gender Identity Not on file Sexual Orientation Not on file Last Filed Vital Signs Vital Sign Reading Time Taken Comments Blood Pressure 182/120 04/20/2021 7:25 AM METAL HARDENER Pulse 69 04/20/2021 7:25 AM METAL HARDENER Temperature 36.6 C (97.8 F) 01/02/2018 2:54 PM CDT Respiratory Rate 20 12/07/2015 3:02 PM CDT Oxygen Saturation 97% 01/02/2018 2:54 PM CDT Inhaled Oxygen Concentration - - Weight 108.9 kg (240 lb) 04/20/2021 7:25 AM METAL HARDENER Height 162.6 cm (5' 4) 04/20/2021 7:25 AM METAL HARDENER Body Mass Index 41.2 04/20/2021 7:25 AM METAL HARDENER Plan of Treatment Health Maintenance Due Date [...] 2) 10/21/2019 SCREENING FOR DIABETES 04/20/2021 08/18/2017 DEPRESSION SCREENING 05/29/2024 COVID-19 VACCINE (1 - 2023-2 5 season) 2025 INFLUENZA VACCINE (#1) 2025 1, 02/26/2019 HIB VACCINE Aged Out No longer [...] 65 - 99 mg/dL [facility] ([facility]) BUN 14 6 - 24 mg/dL [facility] ([facility]) Creatinine 0.88 0.57 - 1.00 mg/dL [facility] ([facility]) eGFR non- 78 >59 mL/min/1.7 3 [facility] ([facility]) eGFR 90 >59 mL/min/1.7 3 [facility] ([facility]) BUN/Creatinine Ratio 16 9 - 23 [facility]) Sodium 141 134 - 144 mmol/L [facility] ([facility]) Potassium 4.2 3.5 - 5.2 mmol/L [facility]) Chloride 96 96 - 106 mmol/L [facility]) CO2 27 18 - 29 mmol/L [facility] ([facility]) Calcium 10.2 8.7 - 10.2 mg/dL [facility] ([facility]) Blood specimen (specimen) BLOOD SPECIMEN / Unknown 08/18/2017 8:08 AM CDT 08/18/2017 Narrative [facility] ([facility]) - 08/19/2017 7:36 AM CDT Performed at: - [facility] [address], [place] [id number] Toll Operator: Gume Grace PhD, Phone: [phone] us Colby Bailey MD LAB - CHEMISTRY ORDERABLES Corry be Result [facility] ([facility]) [address] [place] [address], [facility] from Last 3 Months or Most Recently Relevant to Health Maintenance Insurance [facility] SELF PAY NO INSURANCE Member Subscriber Plan / Payer (Ef fective for All Dates) Name:Marion Espinal Member ID:Not on file Relation to Subscriber:Not on file Name:MARION ESPINAL Subscriber ID:Not on file (Home) Address: [address] [place] [address] Payer ID:Not on file Group ID:Not on file Type:Self Pay Address: [place] [facility] SELF PAY NO INSURANCE Member Subscriber Plan / Payer (Ef fective for All Dates) Name:Marion Espinal Member ID:Not on file Relation to Subscriber:Not on file Name:MARION ESPINAL Subscriber ID:Not on file Address: [address] [place] [address] Payer ID:Not on file Group ID:Not on file Type:Self Pay Address: [place] [facility] SELF PAY NO INSURANCE Member Subscriber Plan / Payer (Ef fective for All Dates) Name:Marion Espinal Member ID:Not on file Relation to Subscriber:Not on file Name:MARION ESPINAL Subscriber ID:Not on file Address: [address] [place] [address] Payer ID:Not on file Group ID:Not on file Type:Self Pay Address: [place] SELF PAY NO INSURANCE Member Subscriber Plan / Payer (Ef fective for All Dates) Name:Marion Espinal Member ID:Not on file Relation to Subscriber:Not on file Name:MARION ESPINAL Subscriber ID:Not on file Address: [address] [place] [address] Payer ID:Not on file Group ID:Not on file Type:Self Pay Address: [place], [place] Care Teams Data Processing Equipment Repairer Relationship Specialty Start Date End Date Ciera Frye DO [address] [place] [phone] PCP - General 01/02/18
--- OUTSIDE RECORDS SUMMARY | 2025-04-09 09:00 | XMS_ITS | Clinical Summary ---
Author Organization 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 Gender Identity Not on file Sexual Orientation Not on file Plan of Treatment Health Maintenance Due Date Last Done Comments Hepatitis C Virus (HCV) Screening 1970 TdaP Immunization 1970 Hepatitis B Immunization (1 of 3 - 19+ 3-dose series) 1988 Pap Smear 1990 Cervical Cancer Screening (CCS) 10/21/1999 HPV/Cotest 10/21/1999 Cologuard 2014 Colonoscopy 2014 Colorectal Cancer Screening 2014 Immunochemical Fecal Occult Blood 2014 Pneumococcal Immunization (5 0+ years) (1 of 1 - PCV) 10/21/2019 Zoster Immunization (1 of 2) 10/21/2019 Influenza Immunization (#1) 2025 04/12/2018 SARS-COV-2 Immunization ( - season) 2025 Respiratory Syncytial Virus (RSV) Immunization (Adult) (1 - 1-dose 75+ series) 2044 Human Papillomavirus (HPV) Immunization Aged Out No longer eligible b ased on patient's age to complete this topic Meningococcal Immunization (ACWY) Aged Out No longer eligible based on patient's age to complete this topic Rotavirus Immunization Aged Out No lo nger eligible based on patient's age to complete this topic
--- OUTSIDE RECORDS SUMMARY | 2025-04-09 09:01 | XMS_ITS | Data Portability ---
Author Organization [facility] - [facility], PMelvinCMelvin, [facility] Address [address] [place] [address] Assessment No assessment recorded. Plan of Treatment Reminders Order Date Submit Date Provider Last Modified By Organization Details Last Modified Time Details Appointments None recorded. Lab CMP, serum or plasma 2015 016 DBA_PATCH_2 [id number] Not available 6 04:20:37 vitamin D3, 25-hydrox y, serum 2015 016 DBA_PATCH_2 [id number] Not available 6 04:20:38 T3, free, serum or plasma 2015 016 DBA_PATCH_2 [id number] Not available 6 04:20:39 TSH + free T4, serum 2015 016 DBA_PATCH_2 [id number] Not available 6 04:20:35 immunoglo bulins iga+igg+i gm, quantitat laura, serum 2015 016 DBA_PATCH_2 [id number] Not available 6 04:20:04 CBC w/ diff 2015 016 DBA_PATCH_2 [id number] Not available 6 04:20:06 T3, free, serum or plasma 2015 016 DBA_PATCH_2 [id number] Not available 6 04:20:06 TSH, serum or plasma 2015 016 DBA_PATCH_2 [id number] Not available 6 04:20:02 T3, reverse, serum 2015 016 DBA_PATCH_2 [id number] Not available 6 04:20:07 T4, free, serum 2015 016 DBA_PATCH_2 [id number] Not available 6 04:20:06 vitamin B12 + folate, serum or blood 2015 016 DBA_PATCH_2 [id number] Not available 6 04:19:57 vitamin D3, 25-hydrox y, serum 2015 016 DBA_PATCH_2 [id number] Not available 6 04:20:01 CMP, serum or plasma 2015 016 DBA_PATCH_2 [id number] Not available 6 04:20:02 CBC 2015 016 DBA_PATCH_2 [id number] Not available 6 04:20:04 judit-b arr virus (ebv) IgG + IgM panel, serum 2015 016 DBA_PATCH_2 [id number] Not available 6 04:20:07 Referral physical therapist referral - back muscle tension and pain 2014 015 jblechle Not available 5 10:35:11 Procedures None recorded. Surgeries None recorded. Imaging XR, sinuses 2015 016 DBA_PATCH_2 [id number] [facility], [address] [place], [address], 6 04:20:02 x-ray, chest 2015 016 DBA_PATCH_2 [id number] Not available 6 04:20:01 Medication Orders Advair Diskus 250 mcg-50 mcg/dose powder for inhalatio n 2015 016 DBA_PATCH_2 [id number] [facility]03891, [address] [place], [place], [id number], 6 04:20:07 Biaxin 500 mg tablet 2015 016 DBA_PATCH_2 [id number] [facility] #90309, [address], [place], [id number], 6 04:20:01 ProAir HFA 90 mcg/actua tion aerosol inhaler 2015 016 DBA_PATCH_2 [id number] [facility] #15364, [address] [place] [address], [id number], 6 04:20:04 Silica (Silicea) 2014 015 [facility], [address] [place] [address], [id number], 6 13:09:38 Arnica [place] 2014 015 illadriane [facility] #11339, [address] [place] [address], [id number], 6 14:28:40 Lidoderm 5 % topical patch 2014 015 INTERFACE [facility] #21294, [address] [place] [address], [id number], 5 18:36:58 [facility] roid 113.75 mg tablet 2014 015 INTERFACE [facility], [address] [place] [address], [id number], 5 18:36:55 Patient TargetsNo targets recorded. Patient Instructions Encounter Date Encounter Id Patient Instructions Last Modified By Organization Details Last Modified Time 12/03/2014 [id number] allergies: care instructions [email or web address] Not available 12/04/2014 [...] to clinic if symptoms worsen or persist. [email or web address] Not available 12/03/2014 18:36:51 10/29/2015 [id number] Referral to Michelle Chowdary for thyroid nodules cwillbrand Not available 10/29/2015 14:38:35 11/19/2015 [id number] controlling your asthma: care instructions jblechle Not available 11/20/2015 08:26:54 learning about asthma jblechle Not available 11/20/2015 08:26:54 cough: care instructions jblechle Not available 11/20/2015 08:26:55 12/24/2015 [id number] Con't the same Anti inflammatory diet off Gluten dairy sugar [email or web address] Not available 12/24/2015 13:25:19 03/31/2016 [id number] managing your allergies: care instructions smimms Not [...] 1.16 NG/dL 0.82-1 .77 Not Available [facility] ([facility]) [address] [place], [address], 11/07/2014 06:41:18 11/07/19 15 11/07/2014 TSH, serum or plasm a TSH 0.068 uIU/m L 0.450- 4.500 low Not Available [facility] ([facility]) [address] [facility], [place], [address], 11/07/2014 06:41:19 11/07/19 15 11/07/2014 T3, free, serum or plasm a triiodothyro nine,free,se rum 3.2 pg/mL 2.0-4. 4 Not Available [facility] ([facility]) [address] [facility] [place], [address], 11/07/2014 06:41:19 10/29/19 16 10/30/2015 CBC WBC 6.5 x10e3 /uL 3.4-10 .8 Not Available [facility] ([facility]) [address] [place], [address], 11/01/2015 16:35:30 10/29/19 16 10/30/2015 CBC RBC 5.21 x10e6 /uL 3.77-5 .28 Not Available [facility] ([facility]) [address] [place], [address], 11/01/2015 16:35:30 10/29/19 16 10/30/2015 CBC hemoglobin 14.1 g/dL 11.1-1 5.9 Not Available [facility] ([facility]) [address] [place], [address], 11/01/2015 16:35:30 10/29/19 16 10/30/2015 CBC hematocrit 45.0 % 34.0-4 6.6 Not Available [facility] ([facility]) [address] [place], [address], 11/01/2015 16:35:30 10/29/19 16 10/30/2015 CBC MCV 86 fL 79-97 Not Available [facility] ([facility]) [address] [place], [address], 11/01/2015 16:35:30 10/29/19 16 10/30/2015 CBC MCH 27.1 pg 26.6-3 3.0 Not Available [facility] ([facility]) [address] [place], [address], 11/01/2015 16:35:30 10/29/19 16 10/30/2015 CBC MCHC 31.3 g/dL 31.5-3 5.7 below low normal Not Available [facility] ([facility]) [address] [place], [address], 11/01/2015 16:35:30 10/29/19 16 10/30/2015 CBC RDW 15.2 % 12.3-1 5.4 Not Available [facility] ([facility]) [address], [place], [address], 11/01/2015 16:35:30 10/29/19 16 10/30/2015 CBC platelets 192 x10e3 /uL 150-37 9 Not Available [facility] ([facility]) [address] [facility], [place], [address], 11/01/2015 16:35:30 10/29/19 16 10/30/2015 CBC neutrophils 63 % Not Avai lable [facility] ([facility]) [address] [facility], [place], [address], 11/01/2015 16:35:30 10/29/19 16 10/30/2015 CBC lymphs 21 % Not Available [facility] ([facility]) [address] [facility], [place], [address], 11/01/2015 16:35:30 10/29/19 16 10/30/2015 CBC monocytes 10 % Not Availa ble [facility] ([facility]) [address] [facility] [place], [address], 11/01/2015 16:35:30 10/29/19 16 10/30/2015 CBC eos 5 % Not Available [facility] ([facility]) [address] [facility], [place], [address], 11/01/2015 16:35:30 10/29/19 16 10/30/2015 CBC basos 1 % Not Available [facility] ([facility]) [address] [facility], [place], [address], 11/01/2015 16:35:30 10/29/19 16 10/30/2015 CBC immature cells GLUING PRESSMAN Not Available [facility] ([facility]) [address] [facility], [place], [address], 11/01/2015 16:35:30 10/29/19 16 10/30/2015 CBC neutrophils (absolute) 4.1 x10e3 /uL 1.4-7. 0 Not Available [facility] ([facility]) [address] [facility], [place], [address], 11/01/2015 16:35:30 10/29/19 16 10/30/2015 CBC lymphs (absolute) 1.4 x10e3 /uL 0.7-3. 1 Not Available [facility] ([facility]) [address] [facility], [place], [address], 11/01/2015 16:35:30 10/29/19 16 10/30/2015 CBC monocytes(ab solute) 0.7 x10e3 /uL 0.1-0. 9 Not Available [facility] ([facility]) [address] [facility], [place], [address], 11/01/2015 16:35:30 10/29/19 16 10/30/2015 CBC eos (absolute) 0.3 x10e3 /uL 0.0-0. 4 Not Available [facility] ([facility]) [address] [facility], [place], [address], 11/01/2015 16:35:30 10/29/19 16 10/30/2015 CBC baso (absolute) 0.0 x10e3 /uL 0.0-0. 2 Not Available [facility] ([facility]) [address] [facility], [place], [address], 11/01/2015 16:35:30 10/29/19 16 10/30/2015 CBC immature granulocytes 0 % Not Available [facility] ([facility]) [address] [facility] [place], [address], 11/01/2015 16:35:30 10/29/19 16 10/30/2015 CBC immature grans (abs) 0.0 x10e3 /uL 0.0-0. 1 Not Available [facility] ([facility]) [address] [facility] [place], [address], 11/01/2015 16:35:30 10/29/19 16 10/30/2015 CBC NRBC GLUING PRESSMAN Not Available [facility] ([facility]) [address] [facility] [place], [address], 11/01/2015 16:35:30 10/29/19 16 10/30/2015 CBC hematology comments: GLUING PRESSMAN Not Available [facility] ([facility]) [address] [place], [address], 11/01/2015 16:35:30 10/29/19 16 10/30/2015 CMP, serum or plasm a glucose, serum 80 mg/dL 65-99 Not Available [facility] ([facility]) [address] [facility] [place], [address], 11/01/2015 16:35:31 10/29/19 16 10/30/2015 CMP, serum or plasm a BUN 15 mg/dL 6-24 Not Available [facility] ([facility]) [address] [place], [address], 11/01/2015 16:35:31 10/29/19 16 10/30/2015 CMP, serum or plasm a creatinine, serum 0.83 mg/dL 0.57-1 .00 Not Available [facility] ([facility]) [address] [facility] [place], [address], 11/01/2015 16:35:31 10/29/19 16 10/30/2015 CMP, serum or plasm a eGFR if nonafricn AM 85 mL/mi n/1.7 3 >59 Not Available [facility] ([facility]) [address] [facility] [place], [address], 11/01/2015 16:35:31 10/29/19 16 10/30/2015 CMP, serum or plasm a eGFR if africn AM 98 mL/mi n/1.7 3 >59 Not Available [facility] ([facility]) [address] [facility] [place], [address], 11/01/2015 16:35:31 10/29/19 16 10/30/2015 CMP, serum or plasm a BUN/creatini ne ratio 18 9-23 Not Available [facility] ([facility]) [address] [facility] [place], [address], 11/01/2015 16:35:31 10/29/19 16 10/30/2015 CMP, serum or plasm a sodium, serum 143 mmol/ L 134-14 4 Not Available [facility] ([facility]) [address] [facility] [place], [address], 11/01/2015 16:35:31 10/29/19 16 10/30/2015 CMP, serum or plasm a potassium, serum 4.2 mmol/ L 3.5-5. 2 Not Available [facility] ([facility]) [address] [facility] [place], [address], 11/01/2015 16:35:31 10/29/19 16 10/30/2015 CMP, serum or plasm a chloride, serum 99 mmol/ L 97-108 Not Available [facility] ([facility]) [address] [facility] [place], [address], 11/01/2015 16:35:31 10/29/19 16 10/30/2015 CMP, serum or plasm a carbon dioxide, total 25 mmol/ L 18-29 Not Available [facility] ([place]) [address] [facility], [address], 11/01/2015 16:35:31 10/29/19 16 10/30/2015 CMP, serum or plasm a calcium, serum 9.8 mg/dL 8.7-10 .2 Not Available [facility] ([facility]) [address] [place], [address], 11/01/2015 16:35:31 10/29/19 16 10/30/2015 CMP, serum or plasm a protein, total, serum 7.2 g/dL 6.0-8. 5 Not Available [facility] ([facility]) [address] [place], [address], 11/01/2015 16:35:31 10/29/19 16 10/30/2015 CMP, serum or plasm a albumin, serum 4.6 g/dL 3.5-5. 5 Not Available [facility] ([facility]) [address] [place], [address], 11/01/2015 16:35:31 10/29/19 16 10/30/2015 CMP, serum or plasm a globulin, total 2.6 g/dL 1.5-4. 5 Not Available [facility] ([facility]) [address] [place], [address], 11/01/2015 16:35:31 10/29/19 16 10/30/2015 CMP, serum or plasm a A/G ratio 1.8 1.1-2. 5 Not Available [facility] ([facility]) [address] [place], [address], 11/01/2015 16:35:31 10/29/19 16 10/30/2015 CMP, serum or plasm a bilirubin, total 0.5 mg/dL 0.0-1. 2 Not Available [facility] ([facility]) [address] [place], [address], 11/01/2015 16:35:31 10/29/19 16 10/30/2015 CMP, serum or plasm a alkaline phosphatase, S 84 IU/L 39-117 Not Available [facility] ([facility]) [address] [facility] [place], [address], 11/01/2015 16:35:31 10/29/19 16 10/30/2015 CMP, serum or plasm a AST (SGOT) 30 IU/L 0-40 Not Available [facility] ([facility]) [address] [facility] [place], [address], 11/01/2015 16:35:31 10/29/19 16 10/30/2015 CMP, serum or plasm a ALT (SGPT) 41 IU/L 0-32 above high normal Not Available [facility] ([facility]) [address] [facility], [place], [address], 11/01/2015 16:35:31 10/29/19 16 10/29/2015 epste in-ba [...] ANTIB CARTER ABSEN T Not Available [facility] ([facility]) [address] [facility], [place], [address], 11/01/2015 16:35:31 10/29/19 16 10/30/2015 epste in-ba rr virus (ebv) Ab, serum ebv Ab vca, IgM <36.0 U/mL 0.0-35 .9 NEGAT LAURA <36.0 EQUIV OCAL 36.0 - 43.9 POSIT LAURA >43.9 Not Available [facility] ([facility]) [address] [facility], [place], [address], 11/01/2015 16:35:31 10/29/19 16 10/30/2015 epste in-ba rr virus (ebv) Ab, serum ebv early antigen Ab, IgG 21.2 U/mL 0.0-8. 9 above high normal HEPAT ITIS A, HEPAT ITIS C AND HIV ANTIB ODIES MAY CROSS -REAC T WITH THIS ASSAY . NEGAT LAURA < 9.0 EQUIV OCAL 9.0 - 10.9 POSIT LAURA >10.9 Not Available [facility] ([facility]) [address] [place], [address], 11/01/2015 16:35:31 10/29/19 16 10/30/2015 epste in-ba rr virus (ebv) Ab, serum ebv Ab vca, IgG >600.0 U/mL 0.0-17 .9 above high normal NEGAT LAURA <18.0 EQUIV OCAL 18.0 - 21.9 POSIT LAURA >21.9 Not Available [facility] ([facility]) [address] [place], [address], 11/01/2015 16:35:31 10/29/19 16 10/30/2015 epste in-ba rr virus (ebv) Ab, serum ebv nuclear antigen Ab, IgG 71.2 U/mL 0.0-17 .9 above high normal NEGAT LAURA <18.0 EQUIV OCAL 18.0 - 21.9 POSIT LAURA >21.9 Not Available [facility] ([facility]) [address] [place], [address], 11/01/2015 16:35:31 10/29/19 16 10/30/2015 vitam in B12 + folat e, serum or blood vitamin B12 969 pg/mL 211-94 6 above high normal Not Available [facility] ([facility]) [address] [place], [address], 11/01/2015 16:35:32 10/29/19 16 10/30/2015 vitam in B12 + folat e, serum or blood folate (folic acid), serum 12.7 NG/mL >3.0 A SERUM FOLAT E MARYANA NTRAT ION OF LESS THAN 3.1 NG/ML IS CONSI DERED TO REPRE SENT CLINI [facility] DEFIC IENCY . Not Available [facility] ([facility]) [address] [facility], [place], [address], 11/01/2015 16:35:32 10/29/19 16 10/30/2015 vitam in [...] ENDOC RINE SOCIE TY WENT ON TO FURTH ER DEFIN E VITAM IN D INSUF FICIE NCY A LEVEL BETWE EN 21 AND 29 NG/ML (2). 1. IOM (INST ITUTE OF MEDIC INE). 2009. VERONIQUE RY REFER ENCE INTAK ES FOR CALCI UM AND D. LUIS ACKERMAN DC: THE NATIO NAL ACADE [facility] PRESS . 2. ANA PAULA Ruffin MF, MELISSA DU NC, KARLA OFF-F ERRAR I NERI, ET AL. EVALU ATION , TREAT MENT, AND PREVE NTION OF VITAM IN D DEFIC IENCY : AN ENDOC RINE SOCIE TY CLINI [facility] PRACT ICE GUIDE LINE. [facility]. 2010; 96(7) :1911 -30. Not Available [facility] ([facility]) [address] [facility], [place], [address], 11/01/2015 16:35:32 10/29/19 16 10/30/2015 T4, free, serum T4,free(dire ct) 1.01 NG/dL 0.82-1 .77 Not Available [facility] ([facility]) [address] [facility], [place], [address], 11/01/2015 16:35:32 10/29/19 16 10/30/2015 TSH, serum or plasm a TSH 1.850 uIU/m L 0.450- 4.500 Not Available [facility] ([facility]) [address] [facility] [place], [address], 11/01/2015 16:35:33 10/29/19 16 11/01/2015 T3, rever se, serum reverse T3, serum 26.1 NG/dL 9.2-24 .1 above high normal Not Available [facility] ([facility]) [address] [facility] [place], [address], 11/01/2015 16:35:33 10/29/19 16 10/30/2015 T3, free, serum or plasm a triiodothyro nine,free,se rum 4.0 pg/mL 2.0-4. 4 Not Available [facility] ([facility]) [address] [facility] [place], [address], 11/01/2015 16:35:33 12/01/19 16 12/02/2015 CBC w/ auto diff WBC 8.2 x10e3 /uL 3.4-10 .8 Not Available [facility] ([facility]) [address] [facility] [place], [address], 12/02/2015 06:05:43 12/01/19 16 12/02/2015 CBC w/ auto diff RBC 5.38 x10e6 /uL 3.77-5 .28 above high normal Not Available [facility] ([facility]) [address] [place], [address], 12/02/2015 06:05:43 12/01/19 16 12/02/2015 CBC w/ auto diff hemoglobin 14.8 g/dL 11.1-1 5.9 Not Available [facility] ([facility]) [address] [facility] [place], [address], 12/02/2015 06:05:43 12/01/19 16 12/02/2015 CBC w/ auto diff hematocrit 44.8 % 34.0-4 6.6 Not Available [facility] ([facility]) [address] [place], [address], 12/02/2015 06:05:43 12/01/19 16 12/02/2015 CBC w/ auto diff MCV 83 fL 79-97 Not Available [facility] ([facility]) [address] [facility], [place], [address], 12/02/2015 06:05:43 12/01/19 16 12/02/2015 CBC w/ auto diff MCH 27.5 pg 26.6-3 3.0 Not Available [facility] ([facility]) [address] [facility], [place], [address], 12/02/2015 06:05:43 12/01/19 16 12/02/2015 CBC w/ auto diff MCHC 33.0 g/dL 31.5-3 5.7 Not Available [facility] ([facility]) [address] [facility], [place], [address], 12/02/2015 06:05:43 12/01/19 16 12/02/2015 CBC w/ auto diff RDW 14.8 % 12.3-1 5.4 Not Available [facility] ([facility]) [address] [facility], [place], [address], 12/02/2015 06:05:43 12/01/19 16 12/02/2015 CBC w/ auto diff platelets 233 x10e3 /uL 150-37 9 Not Available [facility] ([facility]) [address] [place], [address], 12/02/2015 06:05:43 12/01/19 16 12/02/2015 CBC w/ auto diff neutrophils 70 % Not Available [facility] ([facility]) [address] [place], [address], 12/02/2015 06:05:43 12/01/19 16 12/02/2015 CBC w/ auto diff lymphs 20 % Not Available [facility] ([facility]) [address] [place], [address], 12/02/2015 06:05:43 12/01/19 16 12/02/2015 CBC w/ auto diff monocytes 6 % Not Available [facility] ([facility]) [address] [place], [address], 12/02/2015 06:05:43 12/01/19 16 12/02/2015 CBC w/ auto diff eos 3 % Not Available [facility] ([facility]) [address] [place], [address], 12/02/2015 06:05:43 12/01/19 16 12/02/2015 CBC w/ auto diff basos 1 % Not Available [facility] ([facility]) [address] [place], [address], 12/02/2015 06:05:43 12/01/19 16 12/02/2015 CBC w/ auto diff immature cells GLUING PRESSMAN Not Available [facility] ([facility]) [address] [place], [address], 12/02/2015 06:05:43 12/01/19 16 12/02/2015 CBC w/ auto diff neutrophils (absolute) 5.7 x10e3 /uL 1.4-7. 0 Not Available [facility] ([facility]) [address] [place], [address], 12/02/2015 06:05:43 12/01/19 16 12/02/2015 CBC w/ auto diff lymphs (absolute) 1.7 x10e3 /uL 0.7-3. 1 Not Available [facility] ([facility]) [facility] [place], [address], 12/02/2015 06:05:43 12/01/19 16 12/02/2015 CBC w/ auto diff monocytes(ab solute) 0.5 x10e3 /uL 0.1-0. 9 Not Available [facility] ([facility]) [address] [place], [address], 12/02/2015 06:05:43 12/01/19 16 12/02/2015 CBC w/ auto diff eos (absolute) 0.3 x10e3 /uL 0.0-0. 4 Not Available [facility] ([facility]) [address] [facility], [place], [address], 12/02/2015 06:05:43 12/01/19 16 12/02/2015 CBC w/ auto diff baso (absolute) 0.1 x10e3 /uL 0.0-0. 2 Not Available [facility] ([facility]) [address] [place], [address], 12/02/2015 06:05:43 12/01/19 16 12/02/2015 CBC w/ auto diff immature granulocytes 0 % Not Available [facility] ([facility]) [address] [place], [address], 12/02/2015 06:05:43 12/01/19 16 12/02/2015 CBC w/ auto diff immature grans (abs) 0.0 x10e3 /uL 0.0-0. 1 Not Available [facility] ([facility]) [address] [place], [address], 12/02/2015 06:05:43 12/01/19 16 12/02/2015 CBC w/ auto diff NRBC GLUING PRESSMAN Not Available [facility] ([facility]) [address] [place], [address], 12/02/2015 06:05:43 12/01/19 16 12/02/2015 CBC w/ auto diff hematology comments: GLUING PRESSMAN A HAND- WRITT EN PANEL /PROF ALEN WAS RECEI URI FROM YOUR OFFIC E. IN ACCOR DANCE WITH THE [facility] RP VU UOUS TEST CODE POLIC Y DATED NOVEMBER 2002, WE HAVE ASSIG JOE CBC WITH DIFFE RENTI AL/PL ATELE T, TEST CODE #[address] IF THIS IS NOT THE TESTI NG YOU WISHE D TO RECEI VE ON THIS SPECI MEN, PLEAS E CONTA CT THE [facility] RP CLAMBER T INQUI RY/ TECHN ICAL SERVI EZIO DEPAR TMENT TO JOSE FY THE TEST ORDER . WE APPRE CIATE YOUR BUSIN ESS. Not Available [facility] ([facility]) [address] [facility], [place], [address], 12/02/2015 06:05:43 12/01/19 16 12/02/2015 immun oglob ulins iga+i gg+ig m, quant itati ve, serum immunoglobul in g, qn, serum 1087 mg/dL 700-16 00 Not Available [facility] ([facility]) [address] [place], [address], 12/02/2015 06:05:44 12/01/19 16 12/02/2015 immun oglob ulins iga+i gg+ig m, quant itati ve, serum immunoglobul in A, qn, serum 206 mg/dL 87-352 Not Available [facility] ([facility]) [address] [place], [address], 12/02/2015 06:05:44 12/01/19 16 12/02/2015 immun oglob ulins iga+i gg+ig m, quant itati ve, serum immunoglobul in M, qn, serum 79 mg/dL 26-217 Not Available [facility] ([facility]) [address] [place], [address], 12/02/2015 06:05:44 04/05/20 16 04/06/2016 TSH + free T4, serum TSH 1.790 uIU/m L 0.450- 4.500 Not Available [facility] ([facility]) [address] [place], [address], 04/06/2016 06:09:31 04/05/20 16 04/06/2016 TSH + free T4, serum T4,free(dire ct) 1.05 NG/dL 0.82-1 .77 Not Available [facility] ([facility]) [address] [facility] [place], [address], 04/06/2016 06:09:31 04/05/20 16 04/06/2016 CMP, serum or plasm a glucose, serum 96 mg/dL 65-99 Not Available [facility] ([facility]) [address] [facility] [place], [address], 04/06/2016 06:09:32 04/05/20 16 04/06/2016 CMP, serum or plasm a BUN 14 mg/dL 6-24 Not Available [facility] ([facility]) [address] [facility] [place], [address], 04/06/2016 06:09:32 04/05/20 16 04/06/2016 CMP, serum or plasm a creatinine, serum 0.71 mg/dL 0.57-1 .00 Not Available [facility] ([facility]) [address] [place], [address], 04/06/2016 06:09:32 04/05/20 16 04/06/2016 CMP, serum or plasm a eGFR if nonafricn AM 102 mL/mi n/1.7 3 >59 Not Available [facility] ([facility]) [address] [facility], [place], [address], 04/06/2016 06:09:32 04/05/20 16 04/06/2016 CMP, serum or plasm a eGFR if africn AM 118 mL/mi n/1.7 3 >59 Not Available [facility] ([facility]) [address] [facility] [place], [address], 04/06/2016 06:09:32 04/05/20 16 04/06/2016 CMP, serum or plasm a BUN/creatini ne ratio 20 9-23 Not Available [facility] ([facility]) [address] [facility] [place], [address], 04/06/2016 06:09:32 04/05/20 16 04/06/2016 CMP, serum or plasm a sodium, serum 143 mmol/ L 136-14 4 Not Available [facility] ([facility]) [address] [facility], [address], 04/06/2016 06:09:32 04/05/20 16 04/06/2016 CMP, serum or plasm a potassium, serum 4.2 mmol/ L 3.5-5. 2 Not Available [facility] ([facility]) [address] [facility] [place], [address], 04/06/2016 06:09:32 04/05/20 16 04/06/2016 CMP, serum or plasm a chloride, serum 100 mmol/ L 97-106 Not Available [facility] ([facility]) [address] [place], [address], 04/06/2016 06:09:32 04/05/20 16 04/06/2016 CMP, serum or plasm a carbon dioxide, total 28 mmol/ L 18-29 Not Available [facility] ([facility]) [address] [facility], [address], 04/06/2016 06:09:32 04/05/2004/06/2016 CMP, serum or plasm a calcium, serum 9.9 mg/dL 8.7-10 .2 Not Available [facility] ([facility]) [address] [place], [address], 04/06/2016 06:09:32 04/05/2004/06/2016 CMP, serum or plasm a protein, total, serum 7.4 g/dL 6.0-8. 5 Not Available [facility] ([facility]) [address] [place], [address], 04/06/2016 06:09:32 04/05/20 16 04/06/2016 CMP, serum or plasm a albumin, serum 4.5 g/dL 3.5-5. 5 Not Available [facility] ([facility]) [address] [place], [address], 04/06/2016 06:09:32 04/05/20 16 04/06/2016 CMP, serum or plasm a globulin, total 2.9 g/dL 1.5-4. 5 Not Available [facility] ([facility]) [address] [place], [address], 04/06/2016 06:09:32 04/05/20 16 04/06/2016 CMP, serum or plasm a A/G ratio 1.6 1.1-2. 5 Not Available [facility] ([facility]) [address] [place], [address], 04/06/2016 06:09:32 04/05/20 16 04/06/2016 CMP, serum or plasm a bilirubin, total 0.5 mg/dL 0.0-1. 2 Not Available [facility] ([facility]) [address] [place], [address], 04/06/2016 06:09:32 04/05/20 16 04/06/2016 CMP, serum or plasm a alkaline phosphatase, S 80 IU/L 39-117 Not Available [facility] ([facility]) [address] [place], [address], 04/06/2016 06:09:32 04/05/20 16 04/06/2016 CMP, serum or plasm a AST (SGOT) 14 IU/L 0-40 Not Available [facility] ([facility]) [address] [place], [address], 04/06/2016 06:09:32 04/05/20 16 04/06/2016 CMP, serum or plasm a ALT (SGPT) 20 IU/L 0-32 Not Available [facility] ([facility]) [address] [place], [address], 04/06/2016 06:09:32 04/05/20 16 04/06/2016 vitam in [...] ENDOC RINE SOCIE TY WENT ON TO FURTH ER DEFIN E VITAM IN D INSUF FICIE NCY A LEVEL BETWE EN 21 AND 29 NG/ML (2). 1. IOM (INST ITUTE OF MEDIC INE). 2009. DIETA RY REFER ENCE INTAK ES FOR CALCI UM AND D. LUIS ACKERMAN DC: [facility] PRESS . 2. ANA PAULA Ruffin MF, MELISSA DU NC, KARLA OFF-F ERRAR I NERI, ET AL. EVALU ATION , TREAT MENT, AND PREVE NTION OF VITAM IN D DEFIC IENCY : AN ENDOC RINE SOCIE TY CLINI MARCELLA PRACT ICE GUIDE LINE. JCEM. 2010; 96(7) :1911 -30. Not Available [facility] ([facility]) [address] [facility], [place], [address], 04/06/2016 06:09:34 04/05/20 16 04/06/2016 T3, free, serum or plasm a triiodothyro nine,free,se rum 3.0 pg/mL 2.0-4. 4 Not Available [facility] ([facility]) [address] [facility], [place], [address], 04/06/2016 06:09:35 10/29/19 16 10/29/2015 imagi ng/di agnos tic resul t No observ ation record ed. JAYDE Not Available 2015 09:17:36 12/01/19 16 12/01/2015 XR, sinus es No observ ation record ed. [email or web address] [facility] [address], [place], [address], 12/24/2015 13:07:21 Result Notes None recorded. Problems Name Problem SNOMED Code Status Onset Date Resolution Date Notes Provider Name and Address Organization Details Recorded Time Hypothyroidism 52594039 Active [facility] 6 13:30:19 Fatigue 44201064 Active [facility]ren [facility] 6 13:30:19 Hypertensive disorder 68679144 [facility] 6 13:30:19 Vitamin D deficiency 74966277 [facility] 6 13:30:19 Allergic rhinitis 73894805 [facility] 6 13:30:19 Food intolerance 77250246 [facility] 6 13:30:19 Low back pain 814152296 [facility] 6 13:30:19 Problem Notes None recorded. Procedures Surgical History Date Name Laterality Status Provider Name and Address Organization Details Recorded Time 05/29/19 11 Date of Last Pap Smear completed Umu Lau [place] Brittany [facility] 05/05/2014 11:18:44 Hysterectomy completed Dorothy Guillory [facility] 05/05/2014 11:47:14 Cholecystectomy completed Dorothy Guillory [facility] 05/05/2014 11:47:14 Imaging Results None recorded. [...] index (BMI) Heart rate Body temperature Systolic And Diastolic Provider Name and Address Organization Details Last Updated DateTime 6 162.56 cm 791864. 8 g 40.5 kg/m2 73 /min 91 [degF] 131/89 mm[Hg] Yimi MONTANO [facility] 6 13:46:41 Date Recorded Body height Body weight Body mass index (BMI) Body temperature Heart rate Systolic And Diastolic Provider Name and Address Organization Details Last Updated DateTime 6 162.56 cm 692402. 61 g 40.2 kg/m2 98.3 [degF] 92 /min 117/83 mm[Hg] Umu [facility] 6 17:26:26 Date Recorded Body weight Heart rate Body mass index (BMI) Body height Systolic And Diastolic Provider Name and Address Organization Details Last Updated DateTime 12/03/2014 445876.1 89662 g 62 /min 39.9 kg/m2 162.56 cm 127/84 mm[Hg] Umu [facility] 12/03/2014 17:35:57 Date Recorded Body height Body weight Body mass index (BMI) Heart rate Systolic And Diastolic Provider Name and Address Organization Details Last Updated DateTime 12/24/2015 162.56 cm 903994.4 g 39.6 kg/m2 77 /min 117/81 mm[Hg] [facility] 12/24/2015 12:05:28 Date Recorded Body height Body weight Body mass index (BMI) Heart rate Systolic And Diastolic Provider Name and Address Organization Details Last Updated DateTime 03/31/2016 162.56 cm 971836.4 3 g 39.8 kg/m2 76 /min 117/78 mm[Hg] Anna Potter [facility] 03/31/2016 13:30:30 Social History None recorded. Functional Status Question Answer Note LastModified by Organizat ion Details LastModified Time What is your level of alcohol consumption? Occasional amalic Information not available 05/05/2014 Mental Status None recorded. Family History Relationship Description Onset Age of this Age Resolved Age Notes LastModified by Organization Details LastModified Time Maternal Grandmother Depressive disorder Not available 2013 11:47:15 Maternal Grandmother Osteoporosis [email or web address] Not available 05/05/2014 11:47:15 Maternal Grandmother Hypothyroidi sm [email or web address] Not available 2013 11:47:15 Maternal Grandfather Malignant neoplasm of lung [email or web address] Not available 2013 11:47:15 Maternal Grandfather Osteoporosis [email or web address] Not available 05/05/2014 11:47:15 Medical History Condition Response Coronary Artery Disease N Gout N Kidney Stones N Blood Diseases N Hyperthyroidism N Hypothyroidism Y COPD N Depression N Developmental or Behavioral Disorders N Anxiety Disorder [...] Mental Illness N Diabetes N Bedwetting N Heart Problems/Murmur N Seizures/Epilepsy N Tuberculosis N Diverticulitis N Asthma N [...] Diagnosis SNOMED-CT Code Diagnosis ICD10 Code Diagnosis IMO Codes Diagnosis Note [id number] Dorothy Frazier [address] [place] [address] 05/05/2014 11:06:13 05/05/2014 12:00:45 Hypertensive disorder 12372805 Hypothyroidism 35046683 Fatigue 65410909 95159 Dorothy Guillory [facility] Main [address] [place] [address] 07/17/2014 09:50:27 07/17/2014 11:00:15 Hypothyroidism 21510149 Dietary ma nagement surveillance 484534381 Food intolerance 58694042 67444 Dorothy Guillory [facility] [address] [place] [address] 11/18/2014 15:26:58 11/18/2014 16:14:32 Hypothyroidism 00519114 29789 Dorothy Frazier [address] [place] [address] 12/03/2014 17:31:19 12/03/2014 18:51:18 Low back pain 796102562 Allergic rhinitis 84845753 Hypothyroidism 60234728 62335 Quang Parmar MD Main [address] [place] [address] 10/29/2015 13:43:23 10/29/2015 14:44:39 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 Fatigue 11005521 R53.83 Hypertensive disorder 38 566470 I10 Cough 56003973 R05 34457 Quang Parmar MD [address] [place] [address] 11/19/2015 16:52:37 11/19/2015 18:25:50 Asthma 811729436 J45.909 Recurrent upper respiratory tract infection 594242844 J06.9 Cough 72894790 R05 Mononucleo sis syndrome 76580149 B27.90 74243 Quang Parmar MD [address] [place] [address] 12/24/2015 12:03:36 12/24/2015 13:26:07 Hypertensive disorder 00988629 I10 Hypothyroidism 79290600 E03.9 Vitamin D deficiency 347 22905 E55.9 Low back pain 067146621 M54.5 Food intolerance 0947811 0 K90.4 38548 Quang Parmar MD [address] [place] [address] 03/31/2016 12:55:41 03/31/2016 14:30:48 Hypothyroidism 92676890 E03.9 Hypertensive disorder 38 784218 I10 Allergic rhinitis 211528 04 J30.9 Abnormal l iver function 78109528 K76.89 Obesity 328929315 E66.9 Vitamin D deficiency 347 67147 E55.9 Health Concerns Section Related Observation LastModified by Organization Detai ls LastModified Time None Recorded Concern Status LastModified by Organization Details LastModified Time None Recorded Advance Directives Directive None Recorded Payers Insurance Date Sequence Insurance Name Policy Number Policy Benitez Covered Member ID Benitez Member ID Guarantor Name 03/29/2016 1 [facility] [id number] Imani Ortiz [id number] Imani Ortiz Notes Date Note Type Note Provider Name and Address Organization Details Recorded Time 12/03/2014 text/html Generic HPI TemplateReported by PatientC/o low back pain past few weeks; muscle tension, radiating to hip.Trying to do stretching at home; has done PT in the past which helped. Massage helps.Also c/o allergies, takes flonase, takes zyrtec, helps. Avoids dairy.Needs nature-throid sent to [facility]. Dorothy lott [facility] 12/03/2014 18:40:02 10/29/2015 text/html Since May - has been sick 6 times. June - no strep or flu. Fever - went to the Urgent care - Common cold. Then July again. Then August. Usually feels gets better, but then it returns after a couple of weeks.Monday - started getting stuffy, sore throat. Lymph nodes were swollen and painful to touch. Cough present also.When sick - energy level is bad.Seasonal allergies - will use Flonase and then switched to Nicolasa. Was taking Zyrtec before this. In the past had alsoHashimoto's Hypothyroidism. Some wheezing present. Some SOB. Quang Parmar MD [address] [place], [address], [facility] 11/02/2015 20:29:39 11/19/2015 text/html ROS as noted in the HPI sick again 7th time since May - sore throat - now frequent dry hacking cough then productive. fits.No history of asthma or chronic sinusitis. 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 Quang Parmar MD [address] [place], [address], [facility] 11/19/2015 18:24:47 12/24/2015 text/html Dyazide 37.5/25Nature throid 113.75Better not been sick.Stopped Gluten 2 weeks ago for effect on Silvia. much less arthralgia.Juice plus.Has reduced Advair to once a day without disadvantage - wants to go off - no history of asthma. Quang Parmar MD [address] [place], [address], [facility] 12/24/2015 13:25:47 03/31/2016 text/html Remains off gluten - not too hard. otherwise bad bloating not worth itAsthma much better only rarely used ProAir like once in 3 months.Switched from Zyrtec to Nicolasa. feels like she has recovered well from 10/2015 apparent mononucleosis. Quang Parmar MD [address] [place], [address], [facility] 03/31/2016 14:24:35 OBGyn Episode No OBEpisode recorded.
== END 2025-04-09 08:41 | disposition home or self-care (01) ==
LOC: ANHFOHIMG 08:43
PROVIDERS: PCP Family Medicine; Visit Provider Obstetrics & Gynecology
DX: Z12.31 Encounter for screening mammogram for malignant neoplasm of breast (principal)
CPT/HCPCS: 77063; 77067